=== PATIENT | female | born 1945 | race American Indian/Alaskan Native ===

== ENCOUNTER 2017-01-01 23:17 | Observation (INO) | payer MEDICARE, OTHER ==
[2017-01-01 23:34] VITALS: BMI 26.4
--- NOTE | 2017-01-02 01:43 | ED PDOC ---
Arrival/HPI - General Chief Complaint: Back Pain Time Seen by Provider: 01/02/17 00:18 Historian: Patient - History of Present Illness Narrative History of Present Illness (Text): 01/02/17 01:20 Sailaja Alcaraz is a 71 year old female whose past medical history includes hypertension and GERD, presents to the emergency department complaining of mid- abdominal and back pain after having a mechanical fall two days ago. Patient reports she fell while in her house and uses a walker as support to ambulate. Patient notes she fell forward to her knees and the abdominal pain is worse when trying to straighten her back. Patient denies loss of consciousness, head trauma, chest pain, shortness of breath, dizziness, lightheadedness, or other complaints. Time/Duration: < week (2 days ago) Symptom Onset: Sudden Symptom Course: Unchanged Activities at Onset: Light Modifying Factors (Text): abdominal pain is worse when she straightens her back Context: Walking (with walker as support), Home Past Medical History - Provider Review Nursing Documentation Reviewed: Yes - Infectious Disease Hx of Infectious Diseases: None - Reproductive Menopause: Yes - Cardiac Hx Hypertension: Yes Hx Pacemaker: No - Pulmonary Hx Respiratory Disorders: No - Neurological Hx Neurological Disorder: No Hx Paralysis: No - HEENT Hx HEENT Disorder: No Hx Glaucoma: Yes (left eye) - Renal Hx Renal Disorder: No - Endocrine/Metabolic Hx Endocrine Disorders: No - Hematological/Oncological Hx Blood Transfusions: No Hx Blood Transfusion Reaction: No - Integumentary Hx Dermatological Disorder: No - Musculoskeletal/Rheumatological Hx Musculoskeletal Disorders: Yes Hx Arthritis: Yes - Gastrointestinal Hx Gastrointestinal Disorders: No - Genitourinary/Gynecological Hx Genitourinary Disorders: No - Psychiatric Hx Psychophysiologic Disorder: No Hx Emotional Abuse: No Hx Physical Abuse: No Hx Substance Use: No - Anesthesia Hx Anesthesia Reactions: Yes (DIFFICULTY WAKING UP AFTER EYE SX) Hx Malignant Hyperthermia: No - Suicidal Assessment Feels Threatened In Home Enviroment: No Family/Social History - Physician Review Nursing Documentation Reviewed: Yes Family/Social History: Unknown Family HX Smoking Status: Unknown If Ever Smoked Hx Alcohol Use: No Hx Substance Use: No Allergies/Home Meds Allergies/Adverse Reactions: Allergies No Known Allergies Allergy (Verified 01/01/17 23:31) Home Medications: Home Meds Medication Instructions Recorded Confirmed Enalapril Maleate [Vasotec] 20 mg PO DAILY 05/12/16 01/01/17 Furosemide [Lasix] 40 mg PO DAILY 05/12/16 01/01/17 Metoprolol Succinate [Toprol XL] 100 mg PO DAILY 05/12/16 01/01/17 amLODIPine [Norvasc] 5 mg PO DAILY 05/12/16 01/01/17 Atorvastatin [Lipitor] 20 mg PO HS 01/01/17 01/01/17 Cholecalciferol [Vitamin D] 50,000 iu PO DAILY 01/01/17 01/01/17 Dorzolamide 2%/Timolol 0.5% 1 drop OD DAILY 01/01/17 01/01/17 [Cosopt 2%-0.5% Opht] Iron/Folic Acid/B12/C/Docusate 1 tab PO DAILY 01/01/17 01/01/17 [Ferraplus 90] Pantoprazole [Protonix] 40 mg PO AC 01/01/17 01/01/17 Potassium CL 10 MEQ/50 ML 10 meq PO DAILY 01/01/17 01/01/17 [Potassium CL 10MEQ/50ML STERILE WATER] hydrALAZINE [hydralazine 25 mg PO TID 01/01/17 01/01/17 Hydrochloride] Review of Systems - Review of Systems Constitutional: absent: Fevers Respiratory: absent: SOB Cardiovascular: absent: Chest Pain Gastrointestinal: Abdominal Pain Musculoskeletal: Back Pain Neurological: absent: Headache, Dizziness Physical Exam Vital Signs Reviewed: Yes Vital Signs Temp Pulse Resp Pulse Ox 01/01/17 23:47 99.5 F 82 17 100 Temperature: Afebrile Blood Pressure: Normal Pulse: Regular Respiratory Rate: Normal Appearance: Positive for: Well-Appearing, Non-Toxic, Comfortable Pain Distress: None Mental Status: Positive for: Alert and Oriented X 3 - Systems Exam Head: Present: Atraumatic, Normocephalic Pupils: Present: PERRL Extroacular Muscles: Present: EOMI Conjunctiva: Present: Normal Mouth: Present: Moist Mucous Membranes Neck: Present: Normal Range of Motion Respiratory/Chest: Present: Clear to Auscultation, Good Air Exchange. No: Respiratory Distress, Accessory Muscle Use Cardiovascular: Present: Regular Rate and Rhythm, Normal S1, S2. No: Murmurs Abdomen: Present: Normal Bowel Sounds. No: Tenderness, Distention, Peritoneal Signs, Mass/Organomegaly Back: Present: Other (tenderness on L5 and hip ) Upper Extremity: Present: Normal Inspection. No: Cyanosis, Edema Lower Extremity: Present: Normal Inspection. No: Edema Neurological: Present: GCS=15, CN II-XII Intact, Speech Normal Skin: Present: Warm, Dry, Normal Color. No: Rashes Psychiatric: Present: Alert, Oriented x 3, Normal Insight, Normal Concentration Medical Decision Making ED Course and Treatment: 01/02/17 Impression: 71 year old female with near syncope and back pain after mechanical fall related to the near syncope. Plan: -- EKG -- Chest X-ray -- Hip X-ray -- LS Spine X-ray -- Labs -- Tylenol -- Urinalysis -- Reassess and disposition Progress Notes: 01/02/17 05:45 Patient with labs showing renal insufficiency and anemia, possibly renal in origin. 01/02/17 05:49 EKG: NSR @ 75; no ST/T changes; normal intervals, normal axis. 01/02/17 05:51 For the patient's back pain; x-rays are negative. Urinalysis is still pending as are CT results. With patient c/o back pain going to the abdomen, the consideration of dissection is there, however unable to obtain CTA due to renal function, she will be re-evaluated upon admission and if still complaining of it , may need a MRI in the am when it is open to r/o dissection. Patient is a [facility] patient, which is typically admitted to Dr. Weller; case was discussed with Dr. Boogie, covering Dr. Weller, for admission. 01/02/17 07:05 CT a/p with no acute findings. 01/02/17 07:08 Urine is pending. - Lab Interpretations Lab Results: 01/02/17 01:56 01/02/17 01:56 Lab Results 01/02/17 01:56: Sodium 136, Potassium 3.7, Chloride 100, Carbon Dioxide 21, Anion Gap 19, BUN 74 H, Creatinine 3.8 H, Est GFR ( Amer) 14, Est GFR ( Non-Af Amer) 12, Random Glucose 82, Calcium 9.1, Total Bilirubin 0.4, AST 33, ALT 29, Alkaline Phosphatase 86, Lactate Dehydrogenase 822 H, Total Creatine Kinase 89, Troponin I < 0.01, Total Protein 7.3, Albumin 3.7, Globulin 3.6, Albumin/Globulin Ratio 1.0 L 01/02/17 01:56: WBC 3.8 L, RBC 2.91 L, Hgb 8.0 L, Hct 23.8 L, MCV 81.8, MCH 27.5 , MCHC 33.6, RDW 16.3 H, Plt Count 150, MPV 10.0, Gran % 40.2 L, Lymph % (Auto) 33.7, [place] % (Auto) 6.5 H, Eos % (Auto) 19.3 H, Baso % (Auto) 0.3, Gran # 1.54, Lymph # 1.3, [place] # 0.3, Eos # 0.7, Baso # 0.01 I have reviewed the lab results: Yes - RAD Interpretation Radiology Orders: 01/02/17 00:47 CHEST ONE VIEW [RAD] Stat 01/02/17 00:48 HIP MIN 2V W/ PELVIS LT [RAD] Stat LS SPINE WITH OBL > 18 YRS OLD [RAD] Stat 01/02/17 05:34 ABD & PELVIS W/O PO OR IV CONT [CT] Stat - Medication Orders Current Medication Orders: Sodium Chloride (Sodium Chloride 0.9%) 1,000 mls @ 100 mls/hr IV .Q10H STA Stop: 01/02/17 15:32 Discontinued Medications Acetaminophen (Tylenol 325mg Tab) 650 mg PO STAT STA Stop: 01/02/17 00:47 Last Admin: 01/02/17 02:02 Dose: 650 mg - PA / MATERIAL LOADER / Resident Statement / has reviewed & agrees with the documentation as recorded. / has examined the patient and agrees with the treatment plan. - Scribe Statement The provider has reviewed the documentation as recorded by the Scribe 01/02/2017 Nydia Rowe Provider Scribe Attestation: All medical record entries made by the Scribe were at my direction and personally dictated by me. I have reviewed the chart and agree that the record accurately reflects my personal performance of the history, physical exam, medical decision making, and the department course for this patient. I have also personally directed, reviewed, and agree with the discharge instructions and disposition. Disposition/Present on Arrival - Present on Arrival Any Indicators Present on Arrival: No History of DVT/PE: No History of Uncontrolled Diabetes: No Urinary Catheter: No History of Decub. Ulcer: No History Surgical Site Infection Following: None - Disposition Have Diagnosis and Disposition been Completed?: Yes Diagnosis: Near syncope, Renal insufficiency, Back pain, Anemia Disposition: HOSPITALIZED Disposition Time: 05:40 Patient Plan: Admission Patient Problems: Current Active Problems Problem Status Onset Anemia Acute Back pain Acute Near syncope Acute Renal insufficiency Acute Condition: FAIR
[2017-01-02 02:13] LABS: BASO # 0.01 K/mm3 (0.0-2.0); BASO % 0.3 % (0.0-3.0); EOS # 0.7 (0.0-0.7); EOS % 19.3 % (1.5-5.0); GRAN # 1.54 (1.4-6.5); GRAN % 40.2 % (50.0-68.0); LYMPH # 1.3 (1.2-3.4); LYMPH % 33.7 % (22.0-35.0); MEAN CELL VOLUME 81.8 fl (80.0-105.0); MEAN CORPUSCULAR HEMOGLOBIN 27.5 pg (25.0-35.0); MEAN CORPUSCULAR HGB CONC 33.6 g/dl (31.0-37.0); MONO # 0.3 (0.1-0.6); MONO % 6.5 % (1.0-6.0); RED CELL DISTRIBUTION WIDTH 16.3 % (11.5-14.5); WHITE BLOOD COUNT 3.8 10^3/ul (4.5-11.0)
[2017-01-02 02:18] LABS: HEMATOCRIT 23.8 % (36.0-48.0)
[2017-01-02 02:41] LABS: ALKALINE PHOSPHATASE 86 U/L (38-133); ALT/SGPT 29 U/L (7-56); AST/SGOT 33 U/L (15-39); BILIRUBIN,TOTAL 0.4 mg/dL (0.2-1.3); BLOOD UREA NITROGEN 74 mg/dL (7-21); CALCIUM 9.1 mg/dL (8.4-10.5); CARBON DIOXIDE 21 mmol/L (21-33); CHLORIDE 100 mmol/L (98-107); GFR AFRICAN-AMERICAN 14; GLUCOSE,RANDOM 82 mg/dL (70-110); POTASSIUM 3.7 mmol/L (3.6-5.0); SODIUM 136 mmol/L (132-148); TOTAL PROTEIN 7.3 g/dL (5.8-8.3); TROPONIN I < 0.01 ng/mL
[2017-01-02] MEDS ORDERED: Sodium Chloride 0.9% 1,000 ML IV STA (05:33)
--- NOTE | 2017-01-02 06:57 | CT ---
EXAM: CT Abdomen and Pelvis Without Intravenous Contrast EXAM DATE/TIME: 01/02/2017 5:34 AM CLINICAL HISTORY: 71 years old, female; Pain; Abdominal pain; Generalized; Additional info: Back pain / abd pain TECHNIQUE: Axial computed tomography images of the abdomen and pelvis without intravenous contrast. All CT scans at this facility use one or more dose reduction techniques, viz.: automated exposure control; ma/kV adjustment per patient size (including targeted exams where dose is matched to indication; i.e. head); or iterative reconstruction technique. Coronal and sagittal reformatted images were created and reviewed. COMPARISON: CT - ABD PELVIS IV CONTRAST ONLY 05/12/2016 5:44:19 PM FINDINGS: Lower thorax: Emphysema. ABDOMEN: Liver: Unremarkable. Gallbladder and bile ducts: Unremarkable. No calcified stones. No ductal dilation. Pancreas: Unremarkable. No ductal dilation. Spleen: Unremarkable. No splenomegaly. Adrenals: Unremarkable. No mass. Kidneys and ureters: Tiny 1 x 3 mm calculus midpole right kidney. No hydronephrosis. Hypodense 1.2 cm lesion in right kidney, CT density in the 30s Hounsfield units. Stomach and bowel: Unremarkable. No dilatation of small or large bowel. No mucosal thickening. Appendix: No findings to suggest acute appendicitis. PELVIS: Bladder: Unremarkable. No stones. Reproductive: Unremarkable as visualized. ABDOMEN and PELVIS: Intraperitoneal space: Unremarkable. No free air. No significant fluid collection. Bones/joints: No acute fracture. Soft tissues: Unremarkable. Vasculature: Unremarkable. No abdominal aortic aneurysm. Lymph nodes: No enlarged lymph nodes. IMPRESSION: 1. Tiny right renal calculus and no hydronephrosis. 2. Indeterminate right renal lesion, similar in size to previous examination although less well defined without IV contrast. Complex cyst versus solid lesion. Recommend 3-[address] or MRI follow-up.
--- NOTE | 2017-01-02 07:19 | CP.PCM.HP ---
<Carla Fernando - Last Filed: 01/02/17 13:29> History of Present Illness - History of Present Illness History of Present Illness: CC: Abdominal pain and back pain Patient is a 71 y/o with pmh of htn, GERD, CKD, chronic anemia, chronic gastritis and right eye blindness presenting with epigastric abdominal pain and lateral right lower back pain for 2 days. Patient states she fell 2 days ago while she was walking around the house with her cane and since then she started to experience the back and abdominal pain. The pain is worst when she tries to strengthen herself, better with rest. Since being in the ER the pain has improved. Patient denies hematuria, or dysurea. Patient states when she fell two days ago, she didn't LOC, didn't hit her head, her knees buckled and she fell on her knees. Patient denies h/o falling. Patient denies cp, sob, n/v/d. Admits to occasional chills, but denies fever. Admits to weight loss, denies night sweats. Patient is also c/o pruritus of her skin, states she noticed a rash on her body few days ago, denies any new medications, new soaps, or new food. Don't know if she's allergic to anything. Patient things she might have been bitting by something, but she's not sure what it might be. Tried reaching patient's on the phone, but no reply, left a message. PMH: htn, GERD, CKD, chronic anemia, chronic gastritis and right eye blindness PSH: eye surgery for glaucoma FMH: mom's healthy Social: denies alcohol, tobacco or illicit drug use, lives with , walks with a cane. Allergy: NKDA Home meds: please see emr for full list. Present on Admission - Present on Admission Any Indicators Present on Admission: No History of DVT/PE: No History of Uncontrolled Diabetes: No Urinary Catheter: No Decubitus Ulcer Present: No History Surgical Site Infection Following: None Review of Systems - Constitutional Constitutional: Anorexia, Weight Loss. absent: Headache, Night Sweats, Weakness - EENT Eyes: Blurred Vision, Change in Vision (s/p surgery ) Ears: absent: Dizziness Nose/Mouth/Throat: absent: Sore Throat - Cardiovascular Cardiovascular: absent: Chest Pain, Chest Pain at Rest, Dyspnea, Lightheadedness , Palpitations, Pedal Edema, Syncope - Respiratory Respiratory: absent: Cough, Dyspnea - Gastrointestinal Gastrointestinal: Abdominal Pain. absent: Constipation, Heartburn, Nausea, Vomiting - Genitourinary Genitourinary: absent: Dysuria, Hematuria - Musculoskeletal Musculoskeletal: Back Pain. absent: Muscle Weakness, Stiffness - Integumentary Integumentary: Dry Skin, Pruritus, Rash - Neurological Neurological: absent: Dizziness, Frequent Falls, Syncope, Weakness - Psychiatric Psychiatric: absent: Anxiety, Confusion, Depression - Endocrine Endocrine: absent: Fatigue, Palpitations Past Patient History - Infectious Disease Hx of Infectious Diseases: None - Past Social History Smoking Status: Never Smoked Alcohol: None Drugs: Denies Home Situation {Lives}: With Family - CARDIAC Hx Hypertension: Yes Hx Pacemaker: No - PULMONARY Hx Respiratory Disorders: No - NEUROLOGICAL Hx Neurological Disorder: No Hx Paralysis: No - HEENT Hx HEENT Problems: No Hx Glaucoma: Yes (left eye) - RENAL Hx Chronic Kidney Disease: No - ENDOCRINE/METABOLIC Hx Endocrine Disorders: No - HEMATOLOGICAL/ONCOLOGICAL Hx Blood Transfusions: No Hx Blood Transfusion Reaction: No - INTEGUMENTARY Hx Dermatological Problems: No - MUSCULOSKELETAL/RHEUMATOLOGICAL Hx Musculoskeletal Disorders: Yes Hx Arthritis: Yes - GASTROINTESTINAL Hx Gastrointestinal Disorders: No - GENITOURINARY/GYNECOLOGICAL Hx Genitourinary Disorders: No - PSYCHIATRIC Hx Psychophysiologic Disorder: No Hx Emotional Abuse: No Hx Physical Abuse: No Hx Substance Use: No - SURGICAL HISTORY Hx Surgeries: Yes (BILATERAL CATARACTS WITH IMPLANTS, LASER EYE SX, EGD. COLONOSCOPY) - ANESTHESIA Hx Anesthesia Reactions: Yes (DIFFICULTY WAKING UP AFTER EYE SX) Hx Malignant Hyperthermia: No Meds Allergies/Adverse Reactions: Allergies Allergy/AdvReac Type Severity Reaction Status Date / Time No Known Allergies Allergy Verified 01/01/17 23:31 Physical Exam - Constitutional Appears: No Acute Distress, Cachectic - Head Exam Head Exam: ATRAUMATIC, NORMAL INSPECTION, NORMOCEPHALIC - Eye Exam Eye Exam: EOMI, Normal appearance, PERRL. absent: Scleral icterus Pupil Exam: NORMAL ACCOMODATION - ENT Exam ENT Exam: Mucous Membranes Dry - Neck Exam Neck exam: Positive for: Normal Inspection - Respiratory Exam Respiratory Exam: Clear to Auscultation Bilateral, NORMAL BREATHING PATTERN. absent: Rales, Rhonchi, Wheezes, Respiratory Distress, Stridor - Cardiovascular Exam Cardiovascular Exam: REGULAR RHYTHM, RRR, +S1, +S2. absent: Systolic Murmur - GI/Abdominal Exam GI & Abdominal Exam: Normal Bowel Sounds, Soft. absent: Distended, Firm, Guarding, Rigid, Tenderness - Extremities Exam Extremities exam: Positive for: normal inspection. Negative for: pedal edema - Back Exam Back exam: NORMAL INSPECTION, tenderness (right lateral). absent: muscle spasm , paraspinal tenderness - Neurological Exam Neurological exam: Alert, Oriented x3 - Psychiatric Exam Psychiatric exam: Normal Affect, Normal Mood - Skin Skin Exam: Rash (throughout the body, except private area, and abdominal region. ), Warm Results - Vital Signs Recent Vital Signs: Last Vital Signs Temp 99.5 F 01/01/17 23:47 Pulse 82 01/01/17 23:47 Resp 17 01/01/17 23:47 BP Pulse Ox 100 01/01/17 23:47 - Labs Result Diagrams: 01/02/17 01:56 01/02/17 01:56 Assessment & Plan - Assessment and Plan (Free Text) Assessment: 1) Epigastric abdominal pain likely gerd versus constipation, less likely pancreatitis, cholangitis, intestinal ischemia 2) Lower back pain-likely 2nd to degenerative changes 3) ALEJANDRA on CKD- likely AIN versus multiple myeloma 4) Mechanical fall 2nd to gait instability 5) Chronic anemia, r/o iron deficiency versus hemolysis ( elevated LDH) 6) htn 7) OA 8) Small renal calculi 9) Generalized rash 10) Indeterminate right renal lesion 11) Complex right renal cyst vs solid. 12) Glaucoma Plan: CT abdomen and pelvis with no signs of cholangitis or pancreatitis. Will start protonix. Colace for constipation. Patient has generalized rash, eosinophilia in the setting of ALEJANDRA suspicious for AIN. Will start patient on prednisone 40 mg daily. Will obtain urine eosinophils, random creatinine, sodium and quantitative protein. Patient also has extensive degenerative changes, and anemia, will obtain spep, upep for multiple myeloma. Will obtain iron panel, b12 and folate. On Norvasc for htn. Patient is also on Lipitor and protonix. On cosopt for glaucoma. NS@100 cc/hr. PT for gait instability. Patient seen, examined, and case discussed with Dr Boogie. - Date & Time Date: 01/02/17 Time: 07:50 <Chuyita,Nathan S - Last Filed: 01/02/17 21:41> Results - Vital Signs Recent Vital Signs: Last Vital Signs Temp 98.2 F 01/02/17 17:27 Pulse 71 01/02/17 17:27 Resp 19 01/02/17 17:27 BP 107/57 L 01/02/17 17:27 Pulse Ox 100 01/02/17 10:20 - Labs Result Diagrams: 01/02/17 01:56 01/02/17 01:56 Labs: Laboratory Results - last 24 hr 01/02/17 07:00 Urine Color Yellow Urine Appearance Clear Urine pH 6.0 Ur Specific [place] 1.015 Urine Protein Trace H Urine Glucose (UA) Negative Urine Ketones Negative Urine Blood Negative Urine Nitrate Negative Urine Bilirubin Negative Urine Urobilinogen 0.2 Ur Leukocyte Esterase Negative Urine RBC Negative Urine WBC Negative Urine Bacteria Trace Assessment & Plan - Assessment and Plan (Free Text) Plan: Pt seen and examined. Resident note reviewed and I agree with the note. Pt with anemia, back pain, rash, and eosinophilia. Will start the pt on Predinisone due to probable AIN. R/O myelmoa. Pt with HIV screen that is positive. Will need PCR. Pt is frail. Will add IVF to see if Cr improves due to Pre-Renal cause. Check AM labs.
--- NOTE | 2017-01-02 07:22 | RAD ---
PROCEDURE: Radiographs of the Lumbar Spine. HISTORY: pain COMPARISON: CT sagittal reconstructions 01/02/2017 FINDINGS: BONES: Minimal degenerative like anterior wedging of T12 and T11 are noted. Not significantly changed. Prominent anterior spondylosis -bridging in appearance is suggested. No compressed lumbar vertebral bodies are noted. The L5 posterior mild subluxation relative to S1 is unchanged. Posterior elements appear intact. Mild alignment here consistent with ligamentous laxity -L4-5 and L5-S1 facet hypertrophic arthrosis of the suggested. L5-S1 diffuse superior and inferior spondylosis DISC SPACES: L5-S1 disc space narrowing OTHER FINDINGS: Atherosclerotic vascular calcifications descending abdominal aorta -no aneurysmal dilatation appreciated. Marked stool retention bilateral hemipelvic phleboliths. Distended bladder. Bilateral hip arthrosis. Unremarkable SI joints pubic symphysis IMPRESSION: Lumbar senescent changes -L5-S1 level. Bilateral facet arthrosis L4-5 and L5-S1 with mild retrolisthesis of L5 relative to S1. L5-S1 degenerative disc space narrowing. No lumbar fracture Inferior thoracic degenerative like wedging
[2017-01-02 07:27] LABS: URINE BILIRUBIN NEGATIVE (NEGATIVE); URINE BLOOD NEGATIVE (NEGATIVE); URINE GLUCOSE (UA) NEGATIVE (NEGATIVE); URINE KETONE NEGATIVE (NEGATIVE); URINE LEUKOCYTE ESTERASE NEGATIVE Leu/uL (NEGATIVE); URINE PROTEIN TRACE mg/dL (<30 mg/dL); URINE UROBILINOGEN 0.2 E.U./dL (<1 E.U./dL)
--- NOTE | 2017-01-02 07:27 | RAD ---
PROCEDURE: HISTORY: pain COMPARISON: None TECHNIQUE: AP view of the pelvis and applicable frog leg views obtained. FINDINGS: Bilateral superolateral hip joint space narrowing. Bilateral superior acetabular spurring left greater than right. Well corticated ossification (s) border the superior left acetabulum -os acetabula here versus loose bodies are some considerations. Bilateral ossifications calcifications -greater trochanter bordering -bilateral calcific bursitis versus calcific tendinopathy -gluteal tendons here. Bilateral L4-5 and L5-S1 hypertrophic facet arthrosis. Possible minimal iliac sided sclerosis inferior right SI joint unremarkable sacroiliac joints. Distended bladder. Bilateral hemipelvic phleboliths The left hemipelvis appears superiorly tilted. No fracture or gross dislocation suggested. IMPRESSION: No fracture or dislocation Bilateral hip osteoarthrosis left greater than right. Left os acetabula (Versus loose bodies -versus old osseous avulsions)
[2017-01-02 07:28] LABS: URINE APPEARANCE CLEAR (CLEAR); URINE COLOR YELLOW (YELLOW)
--- NOTE | 2017-01-02 07:30 | RAD ---
PROCEDURE: CHEST RADIOGRAPH, 1 VIEW HISTORY: fall COMPARISON: None available. FINDINGS: LUNGS: Clear. PLEURA: No pneumothorax or pleural fluid seen. CARDIOVASCULAR: Normal. OSSEOUS STRUCTURES: Bordering the right tuberosity calcific tendinopathy is is low subdeltoid calcific bursitis versus atypical spur. . VISUALIZED UPPER ABDOMEN: Normal. OTHER FINDINGS: None. IMPRESSION: No active cardiopulmonary pathology appreciated
[2017-01-02 08:10] LABS: URINE BACTERIA TRACE (NEG); URINE RBC NEGATIVE /hpf (0-2); URINE WBC NEGATIVE /hpf (0-6)
[2017-01-02] MEDS ORDERED: DiphenhydrAMINE 50 mg/ml Inj IVP STA (08:18)
[2017-01-02 08:22] LABS: IRON 22 ug/dL (45-180)
[2017-01-02] MEDS: Pantoprazole 40 mg EC Tab PO SCH ×3 (08:35→17:49)
[2017-01-02] MEDS: Metoprolol Succinate 100 mg XL Tab PO SCH (10:26)
[2017-01-02] MEDS: Dorzolamide 2%/Timolol 0.5% 100 DROP/10 ML BOTTLE OD SCH (13:27)
[2017-01-02] MEDS ORDERED: Pneumococcal 23-Valent Vaccine IM ONE (15:11)
--- NOTE | 2017-01-02 19:18 | CARD ---
APPROVED REPORT EKG Measurement Heart [id number] <Conclusion> Normal sinus rhythm Normal ECG
[2017-01-03] MEDS: Pantoprazole 40 mg EC Tab PO SCH (05:25)
--- NOTE | 2017-01-03 07:25 | CP.PCM.PN ---
<Jenna Fernandola - Last Filed: 01/03/17 10:23> Subjective - Date & Time of Evaluation Date of Evaluation: 01/03/17 Time of Evaluation: 07:30 - Subjective Subjective: Medicine progress note for Dr Boogie. Patient reports the symptoms are the same. Still very frail, still experiencing lower back pain and the epigastric abdominal pain. Denies nausea, vomiting or diarrhea. Denies cp or sob. Denies fever or chills. No cough. Objective - Vital Signs/Intake and Output Vital Signs (last 24 hours): Temp Pulse Resp BP Pulse Ox 98.2 F 81 19 133/67 99 01/03/17 06:00 01/03/17 06:00 01/03/17 06:00 01/03/17 06:00 01/03/17 06:00 Intake and Output: 01/03/17 01/03/17 06:59 18:59 Intake Total 120 Output Total 3 Balance 117 - Medications Medications: Current Medications Amlodipine Besylate (Norvasc) 5 mg PO DAILY [facility] Last Admin: 01/02/17 10:26 Dose: Not Given Atorvastatin Calcium (Lipitor) 20 mg PO HS [facility] Last Admin: 01/02/17 21:46 Dose: 20 mg Docusate Sodium (Colace) 100 mg PO BID [facility] Last Admin: 01/02/17 17:44 Dose: Not Given Dorzolamide/Timolol (Cosopt 2%-0.5% Opht) 1 drop OD DAILY [facility] Last Admin: 01/02/17 13:27 Dose: 1 drop Heparin Sodium (Porcine) (Heparin) 5,000 units SC Q12 [facility] PRN Reason: Protocol Last Admin: 01/02/17 21:46 Dose: 5,000 units Metoprolol Succinate (Toprol Xl) 100 mg PO DAILY [facility] Last Admin: 01/02/17 10:26 Dose: Not Given Pantoprazole Sodium (Protonix Ec Tab) 40 mg PO 0600 [facility] Last Admin: 01/03/17 05:25 Dose: 40 mg Prednisone (Prednisone Tab) 40 mg PO DAILY [facility] Last Admin: 01/02/17 10:27 Dose: 40 mg - Constitutional Appears: No Acute Distress, Cachectic, Chronically Ill - Head Exam Head Exam: ATRAUMATIC, NORMAL INSPECTION, NORMOCEPHALIC - Eye Exam Eye Exam: EOMI, PERRL. absent: Scleral icterus Additional comments: Right eye blindness. - ENT Exam ENT Exam: Mucous Membranes Moist - Neck Exam Neck Exam: Normal Inspection - Respiratory Exam Respiratory Exam: Clear to Ausculation Bilateral, NORMAL BREATHING PATTERN. absent: Rales, Rhonchi, Wheezes, Respiratory Distress, Stridor - Cardiovascular Exam Cardiovascular Exam: REGULAR RHYTHM, RRR, +S1, +S2. absent: Murmur - GI/Abdominal Exam GI & Abdominal Exam: Soft, Tenderness (epigastric region. ), Normal Bowel Sounds. absent: Distended, Firm, Guarding, Rigid, Rebound - Extremities Exam Extremities Exam: absent: Pedal Edema - Back Exam Back Exam: NORMAL INSPECTION - Neurological Exam Neurological Exam: Alert, Awake, Oriented x3 - Psychiatric Exam Psychiatric exam: Depressed - Skin Skin Exam: Rash (with thick skin pad througout her body, except the abdomen, no signs of erythema, no drainage, just dry, and crusted. and pruritric. ) Assessment and Plan - Assessment and Plan (Free Text) Assessment: 1) ALEJANDRA on CKD 2) Anemia of chronic disease 3) Reactive HIV test 4) Leukopenia ANC of 2128 5) Lower back pain-likely 2nd to degenerative changes 6) Mechanical fall 2nd to gait instability 7) htn 8) OA 9) Small renal calculi 10) Generalized rash 11) Indeterminate right renal lesion 12) Complex right renal cyst vs solid. 13) Glaucoma Plan: Patient had reactive HIV test, needs confirmatory test. ID following. H/H improved slightly, b12 and folate pending. will continue to monitor and transfuse if hgb is bellow 7. Creatinine also improved with IV hydration, likely pre-renal component. Urine studies pending. Eosinophelia improved. UPEP and SPEP pending. BCx and UCX are also pending. AIN still a possibility, will continue prednisone 40 mg daily for now. Patient with labile hypotension, thus BP meds are on hold. Will continue lipitor for hld. On cosopt for glaucoma. NS@100 cc/hr. PT for gait instability. On protonix for gi prophylaxis and heparin sc for DVT prophylaxis. Patient seen, examined, and case discussed with Dr Boogie. <Nathan Boogie - Last Filed: 01/03/17 21:34> Objective - Vital Signs/Intake and Output Vital Signs (last 24 hours): Temp Pulse Resp BP Pulse Ox 99 F 82 19 132/80 99 01/03/17 16:50 01/03/17 16:50 01/03/17 16:50 01/03/17 16:50 01/03/17 06:00 - Medications Medications: Current Medications Amlodipine Besylate (Norvasc) 5 mg PO DAILY [facility] Last Admin: 01/03/17 11:58 Dose: 5 mg Atorvastatin Calcium (Lipitor) 20 mg PO HS [facility] Last Admin: 01/02/17 21:46 Dose: 20 mg Docusate Sodium (Colace) 100 mg PO BID [facility] Last Admin: 01/03/17 18:08 Dose: Not Given Dorzolamide/Timolol (Cosopt 2%-0.5% Opht) 1 drop OD DAILY [facility] Last Admin: 01/03/17 12:30 Dose: 1 drop Heparin Sodium (Porcine) (Heparin) 5,000 units SC Q12 [facility] PRN Reason: Protocol Last Admin: 01/03/17 11:58 Dose: 5,000 units Metoprolol Succinate (Toprol Xl) 100 mg PO DAILY [facility] Last Admin: 01/03/17 11:58 Dose: 100 mg Pantoprazole Sodium (Protonix Ec Tab) 40 mg PO 0600 [facility] Last Admin: 01/03/17 05:25 Dose: 40 mg Prednisone (Prednisone Tab) 40 mg PO DAILY [facility] Last Admin: 01/03/17 11:58 Dose: 40 mg - Labs Labs: 01/03/17 06:30 01/03/17 06:30 Assessment and Plan - Assessment and Plan (Free Text) Plan: Pt seen and examined. Resident note reviewed and I agree with it. Possible HIV. Will wait to see the results of HIV PCR. Cr is improving. On Prednisone due to probable AIN. Urine studies pending.
[2017-01-03 07:35] LABS: BASO # 0.01 K/mm3 (0.0-2.0); BASO % 0.3 % (0.0-3.0); EOS # 0.1 (0.0-0.7); GRAN # 2.1 (1.4-6.5); GRAN % 62.6 % (50.0-68.0); HEMATOCRIT 27.1 % (36.0-48.0); LYMPH # 0.9 (1.2-3.4); LYMPH % 27.8 % (22.0-35.0); MEAN CELL VOLUME 81.6 fl (80.0-105.0); MEAN CORPUSCULAR HEMOGLOBIN 26.8 pg (25.0-35.0); MEAN CORPUSCULAR HGB CONC 32.8 g/dl (31.0-37.0); MEAN PLATELET VOLUME 10.8 fl (7.0-11.0); MONO # 0.2 (0.1-0.6); MONO % 6.3 % (1.0-6.0); RED CELL DISTRIBUTION WIDTH 16.6 % (11.5-14.5); WHITE BLOOD COUNT 3.4 10^3/ul (4.5-11.0)
[2017-01-03 07:50] LABS: ALB/GLOB RATIO 0.9 (1.1-1.8); ALKALINE PHOSPHATASE 88 U/L (38-133); ALT/SGPT 28 U/L (7-56); AST/SGOT 35 U/L (15-39); BILIRUBIN,TOTAL 0.3 mg/dL (0.2-1.3); BLOOD UREA NITROGEN 65 mg/dL (7-21); CALCIUM 8.8 mg/dL (8.4-10.5); CARBON DIOXIDE 22 mmol/L (21-33); CHLORIDE 107 mmol/L (98-107); GFR AFRICAN-AMERICAN 22; GLUCOSE,RANDOM 104 mg/dL (70-110); POTASSIUM 3.7 mmol/L (3.6-5.0); SODIUM 140 mmol/L (132-148); TOTAL PROTEIN 7.2 g/dL (5.8-8.3)
[2017-01-03] MEDS: Metoprolol Succinate 100 mg XL Tab PO SCH (11:58)
[2017-01-03] MEDS: Dorzolamide 2%/Timolol 0.5% 100 DROP/10 ML BOTTLE OD SCH (12:30)
--- NOTE | 2017-01-03 12:39 | CP.PCM.CON ---
History of Present Illness - History of Present Illness History of Present Illness: 71 year old female with PMH of chronic anemia, chronic gastritis, GERD, chronic renal failure, right eye blindness, HTN was initially admitted in [facility] because of abdominal pain and is being worked up for this. She is also complaining of pruritus and rash on her torso and arms since a few days and has been scratching. She denies fever or chills, no diarrhea, no nausea or vomiting currently, no shortness of breath, no cough or colds, no sore throat, no headache or dizziness. Rapid HIV was done which is reactive. Infectious diseases consult is requested to further evaluate and manage. Review of Systems - Review of Systems All systems: reviewed and no additional remarkable complaints except (as per HPI ) Past Patient History - Infectious Disease Hx of Infectious Diseases: None - Past Social History Smoking Status: Never Smoked - CARDIAC Hx Hypertension: Yes Hx Pacemaker: No Hx Peripheral Edema: Yes (ble +1) - PULMONARY Hx Respiratory Disorders: No - NEUROLOGICAL Hx Neurological Disorder: No - HEENT Hx HEENT Problems: No Hx Blind: Yes (r eye blind, left eye impaired vision) Hx Cataracts: Yes (b/l sx with implants) Hx Glaucoma: Yes (b/l sx) Other/Comment: laser eye sx, feels like there is something "stuck in my right ear" - RENAL Hx Chronic Kidney Disease: Yes - ENDOCRINE/METABOLIC Hx Endocrine Disorders: No - HEMATOLOGICAL/ONCOLOGICAL Hx Anemia: Yes (chronic) - INTEGUMENTARY Hx Dermatological Problems: Yes Other/Comment: body rash brown bumps over entire body c/o itchy, generalized dry skin started few days ago - MUSCULOSKELETAL/RHEUMATOLOGICAL Hx Musculoskeletal Disorders: Yes Hx Arthritis: Yes (right hip and leg) Hx Falls: Yes (2 days ago) Hx Unsteady Gait: Yes (cane/walker) Other/Comment: right hip/leg pain x 1 month - GASTROINTESTINAL Hx Gastrointestinal Disorders: Yes (weight loss as per pt) Hx Gastroesophageal Reflux: Yes Other/Comment: chronic gastritis,diverticulsis, hemorrhoids, hiatal hernia,pt c/ o that after eye sx in 04/2016 she used to weigh 200 lbs now weighs 149 51 lb weight loss, c/o poor appetite after eye sx - GENITOURINARY/GYNECOLOGICAL Hx Genitourinary Disorders: No - PSYCHIATRIC Hx Psychophysiologic Disorder: No Hx Emotional Abuse: No Hx Physical Abuse: No Hx Substance Use: No - SURGICAL HISTORY Hx Surgeries: Yes (BILATERAL CATARACTS WITH IMPLANTS, LASER EYE SX, EGD. COLONOSCOPY) - ANESTHESIA Hx Anesthesia Reactions: Yes (DIFFICULTY WAKING UP AFTER EYE SX) Hx Malignant Hyperthermia: No Meds Allergies/Adverse Reactions: Allergies Allergy/AdvReac Type Severity Reaction Status Date / Time No Known Allergies Allergy Verified 01/01/17 23:31 - Medications Medications: Current Medications Amlodipine Besylate (Norvasc) 5 mg PO DAILY [facility] Last Admin: 01/02/17 10:26 Dose: Not Given Atorvastatin Calcium (Lipitor) 20 mg PO [facility] Docusate Sodium (Colace) 100 mg PO BID [facility] Last Admin: 01/02/17 17:44 Dose: Not Given Dorzolamide/Timolol (Cosopt 2%-0.5% Opht) 1 drop OD DAILY [facility] Last Admin: 01/02/17 13:27 Dose: 1 drop Heparin Sodium (Porcine) (Heparin) 5,000 units SC Q12 [facility] PRN Reason: Protocol Metoprolol Succinate (Toprol Xl) 100 mg PO DAILY [facility] Last Admin: 01/02/17 10:26 Dose: Not Given Pantoprazole Sodium (Protonix Ec Tab) 40 mg PO 0600 [facility] Prednisone (Prednisone Tab) 40 mg PO DAILY [facility] Last Admin: 01/02/17 10:27 Dose: 40 mg Physical Exam - Constitutional Appears: Non-toxic, No Acute Distress - Head Exam Head Exam: NORMAL INSPECTION - ENT Exam ENT Exam: Mucous Membranes Moist - Neck Exam Neck exam: Negative for: Lymphadenopathy, Meningismus - Respiratory Exam Respiratory Exam: Decreased Breath Sounds - Cardiovascular Exam Cardiovascular Exam: +S1, +S2 - GI/Abdominal Exam GI & Abdominal Exam: Soft. absent: Tenderness - Skin Additional comments: papular lesions on the arms, anterior trunk and legs without note of vesicles Results - Vital Signs Recent Vital Signs: Last Vital Signs Temp 98.2 F 01/02/17 17:27 Pulse 71 01/02/17 17:27 Resp 19 01/02/17 17:27 BP 107/57 L 01/02/17 17:27 Pulse Ox 100 01/02/17 10:20 - Labs Result Diagrams: 01/03/17 06:30 01/03/17 06:30 Labs: Laboratory Results - last 24 hr 01/02/17 07:00 Urine Color Yellow Urine Appearance Clear Urine pH 6.0 Ur Specific [place] 1.015 Urine Protein Trace H Urine Glucose (UA) Negative Urine Ketones Negative Urine Blood Negative Urine Nitrate Negative Urine Bilirubin Negative Urine Urobilinogen 0.2 Ur Leukocyte Esterase Negative Urine RBC Negative Urine WBC Negative Urine Bacteria Trace Assessment & Plan - Assessment and Plan (Free Text) Plan: Assessment Pruritic papular rash with eosinophilia R/O due to HIV, R/O hypereosinophilic syndrome, R/O parasitic infection, R/O hypersensitivity positive rapid HIV test, to be confirmed chronic anemia chronic gastritis GERD chronic renal failure right eye blindness HTN Plan Follow up 4th generation HIV test, HIV RNA PCR and CD4 count will check stool for ova and parasites patient has been started on PO Prednisone which has changed the differential count on the CBC will monitor clinically
[2017-01-03 12:43] LABS: FOLATE > 20.0 ng/mL
[2017-01-04 01:27] LABS: TOTAL PROTEIN, SERUM 6.5 g/dL (6.1-8.1)
[2017-01-04] MEDS ORDERED: DiphenhydrAMINE 12.5 mg/5 ml LIQ UD (5 ml) PO PRN ×2 (02:40→14:35)
--- NOTE | 2017-01-04 03:02 | CP.PCM.PN ---
Subjective - Date & Time of Evaluation Date of Evaluation: 01/04/17 Time of Evaluation: 03:00 - Subjective Subjective: Patient was seen at bedside because she complained of itching in the back. I was asked to co singn order for benadryl. She complained of rash in back. Has no other complaints. Medical record was reviewed. This 71 year old woman was admitted epigastric abdominal pain, lateral right lower back pain. Has PMH of GERD ,CKD, chronic anemia, Hypertension, chronic gastritis, right eye blindness, eye surgery for glaucoma. Objective - Vital Signs/Intake and Output Vital Signs (last 24 hours): Temp Pulse Resp BP Pulse Ox 98.7 F 64 20 114/57 L 100 01/04/17 00:01 01/04/17 00:01 01/04/17 00:01 01/04/17 00:01 01/04/17 00:01 Intake and Output: 01/03/17 01/04/17 18:59 06:59 Intake Total 180 Output Total 100 Balance 80 - Medications Medications: Current Medications Amlodipine Besylate (Norvasc) 5 mg PO DAILY [facility] Last Admin: 01/03/17 11:58 Dose: 5 mg Atorvastatin Calcium (Lipitor) 20 mg PO HS [facility] Last Admin: 01/03/17 21:34 Dose: 20 mg Diphenhydramine HCl (Benadryl) 25 mg PO HS PRN PRN Reason: Allergy symptoms Docusate Sodium (Colace) 100 mg PO BID [facility] Last Admin: 01/03/17 18:08 Dose: Not Given Dorzolamide/Timolol (Cosopt 2%-0.5% Opht) 1 drop OD DAILY [facility] Last Admin: 01/03/17 12:30 Dose: 1 drop Heparin Sodium (Porcine) (Heparin) 5,000 units SC Q12 [facility] PRN Reason: Protocol Last Admin: 01/03/17 21:32 Dose: 5,000 units Metoprolol Succinate (Toprol Xl) 100 mg PO DAILY [facility] Last Admin: 01/03/17 11:58 Dose: 100 mg Pantoprazole Sodium (Protonix Ec Tab) 40 mg PO 0600 [facility] Last Admin: 01/03/17 05:25 Dose: 40 mg Prednisone (Prednisone Tab) 40 mg PO DAILY [facility] Last Admin: 01/03/17 11:58 Dose: 40 mg - Labs Labs: 01/03/17 06:30 01/03/17 06:30 - Constitutional Appears: Well, No Acute Distress - Head Exam Head Exam: ATRAUMATIC, NORMAL INSPECTION, NORMOCEPHALIC - Eye Exam Additional comments: Right eye blindness - ENT Exam ENT Exam: Normal External Ear Exam - Neck Exam Neck Exam: Normal Inspection - Respiratory Exam Respiratory Exam: NORMAL BREATHING PATTERN - Cardiovascular Exam Cardiovascular Exam: absent: JVD - GI/Abdominal Exam GI & Abdominal Exam: absent: Distended - Rectal Exam Rectal Exam: Deferred - Exam Additional comments: Deferred. - Extremities Exam Extremities Exam: Normal Inspection - Back Exam Back Exam: NORMAL INSPECTION - Neurological Exam Neurological Exam: Alert, Awake - Psychiatric Exam Psychiatric exam: Normal Affect - Skin Skin Exam: Normal Color Assessment and Plan - Assessment and Plan (Free Text) Assessment: Skin rash. HTN. GERD. CKD. Anemia. Ch.Gastritis. Right eye blindness. Hx surgery for glaucoma. Plan: Observation. Continue present management.
[2017-01-04 04:19] LABS: CREATININE, RANDOM URINE 88 mg/dL (20-320)
[2017-01-04] MEDS: Pantoprazole 40 mg EC Tab PO SCH (05:56)
[2017-01-04 07:01] LABS: BASO # 0.01 K/mm3 (0.0-2.0); BASO % 0.2 % (0.0-3.0); EOS % 0.2 % (1.5-5.0); GRAN # 3.44 (1.4-6.5); GRAN % 73.2 % (50.0-68.0); HEMATOCRIT 25.7 % (36.0-48.0); LYMPH % 20.2 % (22.0-35.0); MEAN CELL VOLUME 81.3 fl (80.0-105.0); MEAN CORPUSCULAR HEMOGLOBIN 26.9 pg (25.0-35.0); MEAN CORPUSCULAR HGB CONC 33.1 g/dl (31.0-37.0); MEAN PLATELET VOLUME 10.2 fl (7.0-11.0); MONO # 0.3 (0.1-0.6); MONO % 6.2 % (1.0-6.0); RED CELL DISTRIBUTION WIDTH 16.7 % (11.5-14.5); WHITE BLOOD COUNT 4.7 10^3/ul (4.5-11.0)
[2017-01-04 07:17] LABS: ALB/GLOB RATIO 0.9 (1.1-1.8); BILIRUBIN,TOTAL 0.4 mg/dL (0.2-1.3); CALCIUM 9.1 mg/dL (8.4-10.5); POTASSIUM 4.2 mmol/L (3.6-5.0)
[2017-01-04] MEDS ORDERED: Permethrin 5% Cream(60 gm) TOP ONE (09:56)
--- NOTE | 2017-01-04 10:00 | CP.PCM.PN ---
Subjective - Date & Time of Evaluation Date of Evaluation: 01/04/17 Time of Evaluation: 09:35 - Subjective Subjective: Patient continues to have itching especially in the hands and arms, but also had itching on the upper anterior torso and posterior torso. States her whom she lives with also has itching. No fevers overnight. Objective - Vital Signs/Intake and Output Vital Signs (last 24 hours): Temp Pulse Resp BP Pulse Ox 98.7 F 64 20 114/57 L 100 01/04/17 00:01 01/04/17 00:01 01/04/17 00:01 01/04/17 00:01 01/04/17 00:01 Intake and Output: 01/03/17 01/04/17 18:59 06:59 Intake Total 330 Output Total 600 Balance -270 - Medications Medications: Current Medications Amlodipine Besylate (Norvasc) 5 mg PO DAILY [facility] Last Admin: 01/03/17 11:58 Dose: 5 mg Atorvastatin Calcium (Lipitor) 20 mg PO HS [facility] Last Admin: 01/03/17 21:34 Dose: 20 mg Diphenhydramine HCl (Benadryl) 25 mg PO HS PRN PRN Reason: Allergy symptoms Last Admin: 01/04/17 04:26 Dose: 25 mg Docusate Sodium (Colace) 100 mg PO BID [facility] Last Admin: 01/03/17 18:08 Dose: Not Given Dorzolamide/Timolol (Cosopt 2%-0.5% Opht) 1 drop OD DAILY [facility] Last Admin: 01/03/17 12:30 Dose: 1 drop Heparin Sodium (Porcine) (Heparin) 5,000 units SC Q12 [facility] PRN Reason: Protocol Last Admin: 01/03/17 21:32 Dose: 5,000 units Metoprolol Succinate (Toprol Xl) 100 mg PO DAILY [facility] Last Admin: 01/03/17 11:58 Dose: 100 mg Pantoprazole Sodium (Protonix Ec Tab) 40 mg PO 0600 [facility] Last Admin: 01/04/17 05:56 Dose: 40 mg Prednisone (Prednisone Tab) 40 mg PO DAILY [facility] Last Admin: 01/03/17 11:58 Dose: 40 mg - Labs Labs: 01/03/17 06:30 01/03/17 06:30 - Constitutional Appears: Non-toxic, No Acute Distress - Head Exam Head Exam: NORMAL INSPECTION - ENT Exam ENT Exam: Mucous Membranes Moist - Neck Exam Neck Exam: absent: Lymphadenopathy, Meningismus - Respiratory Exam Respiratory Exam: Decreased Breath Sounds - Cardiovascular Exam Cardiovascular Exam: +S1, +S2 - GI/Abdominal Exam GI & Abdominal Exam: Soft. absent: Tenderness - Skin Additional comments: darkened papules with lichenification noted on both hands, upper arms and posterior torso; also note of darkened papules on the posterior torso Assessment and Plan - Assessment and Plan (Free Text) Plan: Assessment Pruritic papular rash with eosinophilia R/O due to HIV, R/O hypereosinophilic syndrome, R/O parasitic infection, R/O hypersensitivity positive rapid HIV test, to be confirmed chronic anemia chronic gastritis GERD chronic renal failure right eye blindness HTN Plan Follow up 4th generation HIV test, HIV RNA PCR and CD4 count will check stool for ova and parasites patient has been started on PO Prednisone which has changed the differential count on the CBC although doubtful that this is scabies, will give Permethrin cream will continue to monitor clinically
[2017-01-04] MEDS: Metoprolol Succinate 100 mg XL Tab PO SCH (11:18)
[2017-01-04] MEDS: Dorzolamide 2%/Timolol 0.5% 100 DROP/10 ML BOTTLE OD SCH (11:20)
--- NOTE | 2017-01-04 14:22 | CP.PCM.PN ---
<AbdullahiCarla - Last Filed: 01/04/17 15:29> Subjective - Date & Time of Evaluation Date of Evaluation: 01/04/17 Time of Evaluation: 08:25 - Subjective Subjective: Progress note for Dr Chuyita grady. Patient reports the abdominal pain and back pain has resolved. Reported she's still experiencing itchiness all over her body ( has a rash all over her body except her abdomen). Benadryl helps temporarily. Patient is also c/o discomfort in the ears bilaterally. Denies hearing loss. Objective - Vital Signs/Intake and Output Vital Signs (last 24 hours): Temp Pulse Resp BP Pulse Ox 98.8 F 70 20 112/60 99 01/04/17 08:56 01/04/17 11:18 01/04/17 08:56 01/04/17 11:18 01/04/17 08:56 Intake and Output: 01/04/17 01/04/17 06:59 18:59 Intake Total 330 Output Total 600 Balance -270 - Medications Medications: Current Medications Amlodipine Besylate (Norvasc) 5 mg PO DAILY [facility] Last Admin: 01/04/17 11:18 Dose: 5 mg Atorvastatin Calcium (Lipitor) 20 mg PO HS [facility] Last Admin: 01/03/17 21:34 Dose: 20 mg Diphenhydramine HCl (Benadryl) 25 mg PO HS PRN PRN Reason: Allergy symptoms Last Admin: 01/04/17 04:26 Dose: 25 mg Docusate Sodium (Colace) 100 mg PO BID [facility] Last Admin: 01/04/17 11:18 Dose: 100 mg Dorzolamide/Timolol (Cosopt 2%-0.5% Opht) 1 drop OD DAILY [facility] Last Admin: 01/04/17 11:20 Dose: 1 drop Heparin Sodium (Porcine) (Heparin) 5,000 units SC Q12 [facility] PRN Reason: Protocol Last Admin: 01/04/17 11:20 Dose: 5,000 units Metoprolol Succinate (Toprol Xl) 100 mg PO DAILY [facility] Last Admin: 01/04/17 11:18 Dose: 100 mg Pantoprazole Sodium (Protonix Ec Tab) 40 mg PO 0600 [facility] Last Admin: 01/04/17 05:56 Dose: 40 mg Prednisone (Prednisone Tab) 40 mg PO DAILY [facility] Stop: 01/05/17 07:00 Last Admin: 01/04/17 11:17 Dose: 40 mg - Labs Labs: 01/04/17 06:30 01/04/17 06:30 - Constitutional Appears: No Acute Distress, Cachectic, Chronically Ill - Head Exam Head Exam: ATRAUMATIC, NORMAL INSPECTION, NORMOCEPHALIC - Eye Exam Eye Exam: EOMI, PERRL. absent: Scleral icterus Additional comments: Right eye blindness. - ENT Exam ENT Exam: Mucous Membranes Moist Additional comments: Normal tympanic membrane in the left, with surrounding ear cerumen. bulging tympanic membrane in the right ear, with fluid in the back of the membrane. - Neck Exam Neck Exam: Full ROM, Lymphadenopathy, Normal Inspection - Respiratory Exam Respiratory Exam: Clear to Ausculation Bilateral, NORMAL BREATHING PATTERN. absent: Rales, Rhonchi, Wheezes, Respiratory Distress, Stridor - Cardiovascular Exam Cardiovascular Exam: REGULAR RHYTHM, +S1, +S2. absent: Gallop, Rubs, Murmur - GI/Abdominal Exam GI & Abdominal Exam: Soft, Normal Bowel Sounds. absent: Distended, Firm, Guarding, Rigid, Tenderness, Hyperactive Bowel Sounds - Extremities Exam Extremities Exam: Normal Capillary Refill, Normal Inspection. absent: Pedal Edema, Tenderness - Back Exam Back Exam: rash noted - Neurological Exam Neurological Exam: Awake, Oriented x3 Neuro motor strength exam: Left Upper Extremity: 4, Right Upper Extremity: 4, Left Lower Extremity: 4, Right Lower Extremity: 4 - Psychiatric Exam Psychiatric exam: Flat Affect - Skin Skin Exam: Dry, Rash (dry, some with crusts, and scabs all over the body, exept the abdominal region. ), Warm Assessment and Plan - Assessment and Plan (Free Text) Assessment: 1) ALEJANDRA on CKD- improving 2) Anemia of chronic disease 3) Reactive HIV test with CD4 count of 52 4) Leukopenia ANC of 2128- improved with steroid. 5) Lower back pain-likely 2nd to degenerative changes 6) Mechanical fall 2nd to gait instability 7) htn 8) OA 9) Small renal calculi 10) Generalized rash in the setting of ALEJANDRA and eosinophilia, r/o MM, AIN, HIV. 11) Indeterminate right renal lesion 12) Complex right renal cyst vs solid. 13) Glaucoma with right eye blindness. 14) Right ear otitis media Plan: Creatinine continued to improve. Will continue prednisone for one more day. Pending UPEP and spep. Reactive HIV test with absolute CD4 count of 52, pending viral load and HIV PCR. Will continue Lipitor for hld. Norvasc for htn, and Lopressor. On cosopt for glaucoma. Benadryl prn for pruritus. On protonix for gi prophylaxis and heparin sc for DVT prophylaxis. Patient seen, examined, and case discussed with Dr Boogie. <Nathan Boogie - Last Filed: 01/04/17 19:36> Objective - Vital Signs/Intake and Output Vital Signs (last 24 hours): Temp Pulse Resp BP Pulse Ox 98.8 F 76 20 118/56 L 100 01/04/17 16:00 01/04/17 16:00 01/04/17 16:00 01/04/17 16:00 01/04/17 16:00 Intake and Output: 01/04/17 01/05/17 18:59 06:59 Intake Total 720 Output Total 400 Balance 320 - Medications Medications: Current Medications Amlodipine Besylate (Norvasc) 5 mg PO DAILY [facility] Last Admin: 01/04/17 11:18 Dose: 5 mg Amoxicillin/Clavulanate Potassium (Augmentin 500 Mg-125 Mg Tab) 1 tab PO Q12 [facility] PRN Reason: Protocol Stop: 01/09/17 22:01 Atorvastatin Calcium (Lipitor) 20 mg PO HS [facility] Last Admin: 01/03/17 21:34 Dose: 20 mg Diphenhydramine HCl (Benadryl) 25 mg PO Q6 PRN PRN Reason: Rash Dorzolamide/Timolol (Cosopt 2%-0.5% Opht) 1 drop OD DAILY [facility] Last Admin: 01/04/17 11:20 Dose: 1 drop Heparin Sodium (Porcine) (Heparin) 5,000 units SC Q12 [facility] PRN Reason: Protocol Last Admin: 01/04/17 11:20 Dose: 5,000 units Metoprolol Succinate (Toprol Xl) 100 mg PO DAILY [facility] Last Admin: 01/04/17 11:18 Dose: 100 mg Pantoprazole Sodium (Protonix Ec Tab) 40 mg PO 0600 [facility] Last Admin: 01/04/17 05:56 Dose: 40 mg Prednisone (Prednisone Tab) 40 mg PO DAILY [facility] Stop: 01/05/17 07:00 Last Admin: 01/04/17 11:17 Dose: 40 mg - Labs Labs: 01/04/17 06:30 01/04/17 06:30 Assessment and Plan - Assessment and Plan (Free Text) Plan: Pt seen and examined. Agree with above not of resident. Labs reviewed. Rash looks like it may be improving. Cr is improving. Will DC Prednisone. Willing to go to TCU.
[2017-01-04] MEDS: Amoxicillin-Clav 500-125 mg Tab PO SCH (22:02)
[2017-01-05] MEDS: Pantoprazole 40 mg EC Tab PO SCH (05:59)
[2017-01-05 07:21] LABS: HEMATOCRIT 25.8 % (36.0-48.0); MEAN CELL VOLUME 81.6 fl (80.0-105.0); MEAN CORPUSCULAR HEMOGLOBIN 27.2 pg (25.0-35.0); MEAN CORPUSCULAR HGB CONC 33.3 g/dl (31.0-37.0); RED CELL DISTRIBUTION WIDTH 16.8 % (11.5-14.5); WHITE BLOOD COUNT 3.5 10^3/ul (4.5-11.0)
[2017-01-05 07:44] LABS: ALB/GLOB RATIO 0.9 (1.1-1.8); BILIRUBIN,TOTAL 0.2 mg/dL (0.2-1.3); CALCIUM 9.1 mg/dL (8.4-10.5); POTASSIUM 4.7 mmol/L (3.6-5.0); TOTAL PROTEIN 6.8 g/dL (5.8-8.3)
--- NOTE | 2017-01-05 10:09 | CP.PCM.PN ---
<Carla Fernando - Last Filed: 01/05/17 12:32> Subjective - Date & Time of Evaluation Date of Evaluation: 01/05/17 Time of Evaluation: :25 - Subjective Subjective: Progress note for Dr Chuyita grady. Patient reported the rash and the pruritus is improving. No acute overnight events. Denies n/v/d, denies fever or chills. Denies abdominal pain, chest pain or shortness of breath. Patient is encouraged to get out of bed. Objective - Vital Signs/Intake and Output Vital Signs (last 24 hours): Temp Pulse Resp BP Pulse Ox 98.4 F 76 20 135/71 100 01/05/17 08:33 01/05/17 08:33 01/05/17 08:33 01/05/17 08:33 01/05/17 08:33 Intake and Output: 01/05/17 01/05/17 06:59 18:59 Intake Total 300 120 Output Total 200 Balance 100 120 - Medications Medications: Current Medications Amlodipine Besylate (Norvasc) 5 mg PO DAILY [facility] Last Admin: 01/04/17 11:18 Dose: 5 mg Amoxicillin/Clavulanate Potassium (Augmentin 500 Mg-125 Mg Tab) 1 tab PO Q12 [facility] PRN Reason: Protocol Stop: 01/09/17 22:01 Last Admin: 01/04/17 22:02 Dose: 1 tab Atorvastatin Calcium (Lipitor) 20 mg PO HS [facility] Last Admin: 01/04/17 22:02 Dose: 20 mg Diphenhydramine HCl (Benadryl) 25 mg PO Q6 PRN PRN Reason: Rash Last Admin: 01/04/17 22:24 Dose: 25 mg Dorzolamide/Timolol (Cosopt 2%-0.5% Opht) 1 drop OD DAILY [facility] Last Admin: 01/04/17 11:20 Dose: 1 drop Heparin Sodium (Porcine) (Heparin) 5,000 units SC Q12 [facility] PRN Reason: Protocol Last Admin: 01/04/17 22:00 Dose: 5,000 units Metoprolol Succinate (Toprol Xl) 100 mg PO DAILY [facility] Last Admin: 01/04/17 11:18 Dose: 100 mg Pantoprazole Sodium (Protonix Ec Tab) 40 mg PO 0600 [facility] Last Admin: 01/05/17 05:59 Dose: 40 mg - Labs Labs: 08/25/17 06:30 01/05/17 06:30 - Constitutional Appears: No Acute Distress, Cachectic, Chronically Ill - Head Exam Head Exam: ATRAUMATIC, NORMAL INSPECTION, NORMOCEPHALIC - Eye Exam Eye Exam: EOMI, PERRL Additional comments: right eye blindness, left eye with glaucoma. - ENT Exam ENT Exam: Mucous Membranes Moist - Neck Exam Neck Exam: Full ROM, Normal Inspection - Respiratory Exam Respiratory Exam: Clear to Ausculation Bilateral, NORMAL BREATHING PATTERN. absent: Prolonged Expiratory Phase, Rales, Rhonchi, Wheezes, Respiratory Distress, Stridor - Cardiovascular Exam Cardiovascular Exam: REGULAR RHYTHM, RRR, +S1, +S2. absent: Bradycardia, Tachycardia, Gallop, JVD, Rubs, Murmur - GI/Abdominal Exam GI & Abdominal Exam: Soft, Normal Bowel Sounds. absent: Distended, Firm, Guarding, Rigid, Tenderness, Rebound - Extremities Exam Extremities Exam: Normal Inspection. absent: Pedal Edema - Back Exam Back Exam: NORMAL INSPECTION - Neurological Exam Neurological Exam: Alert, Awake, Oriented x3 - Psychiatric Exam Psychiatric exam: Normal Affect, Normal Mood - Skin Skin Exam: Dry, Rash (egenralized body parker, sparing the abdmen, with crusted edge, no draiange.), Warm Assessment and Plan - Assessment and Plan (Free Text) Assessment: 1) ALEJANDRA on CKD presumably AIN with pre-renal component, creat improving. 2) Anemia of chronic disease 3) Reactive HIV test with CD4 count of 52 4) Leukopenia ANC of 2128 5) Lower back pain-likely 2nd to degenerative changes 6) Mechanical fall 2nd to gait instability 7) htn 8) OA 9) Small renal calculi 10) Generalized rash- infectious versus allergic 11) Indeterminate right renal lesion 12) Complex right renal cyst vs solid. 13) Glaucoma with right eye blindness. 14) Right ear otitis media Plan: Creatinine continue to improve. Prednisone was discontinued. Generalized rash with some improvement, Confirmatory HIV test still pending, however CD4 count of 52 is alarming for AIDS. Patient is on Augmentin for otitis media of the right ear. Positive FOBT, Gi consulted. H/H remains somewhat stable. Will continue Lipitor for hld. Norvasc for htn, and Lopressor. On cosopt for glaucoma. Benadryl prn for pruritus. On protonix for gi prophylaxis and heparin sc for DVT prophylaxis. Patient seen, examined, and case discussed with Dr Boogie. <Nathan Boogie S - Last Filed: 01/05/17 21:00> Objective - Vital Signs/Intake and Output Vital Signs (last 24 hours): Temp Pulse Resp BP Pulse Ox 98 F 70 18 125/57 L 99 01/05/17 16:00 01/05/17 16:00 01/05/17 16:00 01/05/17 16:00 01/05/17 16:00 Intake and Output: 01/05/17 01/06/17 18:59 06:59 Intake Total 120 Balance 120 - Labs Labs: 01/05/17 06:30 01/05/17 06:30 Assessment and Plan - Assessment and Plan (Free Text) Plan: Pt seen and examined. Resident note reviewed and I agree with it. HIV PCR pending. Eating ok.
[2017-01-05] MEDS: Amoxicillin-Clav 500-125 mg Tab PO SCH (10:12)
[2017-01-05] MEDS: Metoprolol Succinate 100 mg XL Tab PO SCH (10:13)
[2017-01-05] MEDS: Dorzolamide 2%/Timolol 0.5% 100 DROP/10 ML BOTTLE OD SCH (11:58)
[2017-01-05 16:49] VITALS: BP 125/57; PULSE 70; RESP 18; TEMP 98; O2SAT 99
--- NOTE | 2017-01-06 02:37 | PN ---
DATE: 01/05/2017 SUBJECTIVE: The patient is seen in bed, in no acute distress, nontoxic, was seen earlier this morning at room #376, bed 1. No fevers and no chills. PHYSICAL EXAMINATION: VITAL SIGNS: Temperature is 98, blood pressure is 120/50, respiratory rate of 18 and heart rate of 76. HEENT: Unremarkable. NECK: Supple. HEART: Normal S1 and S2. LUNGS: Decreased breath sounds. ABDOMEN: Soft and nontender. LABORATORY DATA: Revealed the patient's white count is 3.5 and hemoglobin of 8. Chemistries reveals a BUN of 48 and creatinine of 1.7. Laboratory reveals of CD4 count of 5% with 52 with positive HIV reactive and PCR 498 logs.. Microbiology is noted. 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 We will discuss with Dr. Rene. The patient should have a CMP workup and ophthalmology examination. The patient does have hypertension and renal disease. We will discuss with Dr Rene regarding a post history with the patient's medical problems and we will follow closely with you. Albino Tapia MD
--- NOTE | 2017-01-08 02:14 | CON ---
DATE: 01/04/2017 This patient was seen and evaluated on 01/04/2017 in med/surgery floor. This is a delayed re-dictation. The original dictation was not found in the system. HISTORY OF PRESENT ILLNESS: This is a 71-year-old patient with HIV positive diagnosed about 7 years ago, followed by Dr. Arguelles, noncompliant with medications, who presented to the emergency room with a history of fall. The patient was complaining of back and abdominal discomfort. She was also found to be anemic with a hemoglobin of 8.9. Stool for occult blood was positive. GI consult was requested to evaluate this. No history of bright red blood per rectum or melena, no history of any vomiting. The patient mentioned to me that she had an endoscopy and possibly colonoscopy, she does not remember the full details, about 3 to 4 years ago. History of gastritis. The patient was also found to have acute kidney injury on top of chronic kidney disease. The patient's hemoglobin on admission was 8 g and it remains stable. MCV normal at 81. PAST MEDICAL HISTORY: Other past medical history is significant as above and the patient has a right eye blindness, GERD, hypertension, and HIV positive as mentioned above. PAST SURGICAL HISTORY: Significant for surgery for glaucoma. FAMILY HISTORY: Noncontributory. SOCIAL HISTORY: Denies smoking or alcohol. ALLERGIES: NO KNOWN DRUG ALLERGIES. REVIEW OF SYSTEMS: Positive as above. Other systems reviewed. No chest pain, no palpitations, and no cough. No bleeding per rectum, no melena. No hematuria. PHYSICAL EXAMINATION GENERAL: On examination, the patient has right eye reduced acuity blindness. On examination, the patient is lying on the bed, not in acute distress. VITAL SIGNS: Temperature 98.8, pulse 76, and blood pressure 118/56. HEENT: Atraumatic. Right eye blindness. NECK: Supple. HEART: S1 and S2 heard. LUNGS: Bilateral air entry present. ABDOMEN: Soft. There was no tenderness. EXTREMITIES: No cyanosis and no clubbing. NEUROLOGICAL: Alert and oriented. LABORATORY DATA: Hemoglobin 8.5, hematocrit 25.7, WBC 4.7, and platelets 190. Chemistry is essentially unremarkable, BUN 53 and creatinine 1.9. The patient did have a CAT scan of the abdomen and pelvis done with no IV or p.o. contrast, a limited study, shows right renal calculus, indeterminate right renal lesion. IMPRESSION: This is a 71-year-old patient with human immunodeficiency virus positive, noncompliant with treatment, admitted following a fall with abdominal pain and back pain, found to be anemic, normocytic. Iron studies are suggestive of chronic kidney disease. Stool for occult blood positive. Hemoglobin remains stable. The likely cause for her anemia is probably multifactorial etiology. The patient does have chronic kidney disease, history of human immunodeficiency virus positive, normocytic anemia. PLAN: Would recommend: 1. B12 and folate were normal. Iron studies reviewed. Would recommend reticulocyte count. 2. Follow up of the hemoglobin/hematocrit. 3. The patient would benefit from endoscopy and colonoscopy evaluation. The patient is being treated for acute kidney injury on the top of chronic kidney disease. The timing of the procedure will be based on the clinical course of the patient. I did discuss with the patient at the present time. I will also discuss with the family. Thank you very much for allowing us to participate in the care of the patient. Nathan Qureshi MD
[2017-01-08 06:10] LABS: BETA 1 GLOBULIN 0.2 g/dL (0.4-0.6); BETA 2 GLOBULIN 0.3 g/dL (0.2-0.5); GAMMA GLOBULIN 1.5 g/dL (0.8-1.7)
--- NOTE | 2017-02-01 00:51 | DS ---
This is a 71-year-old female who had come into the hospital, was found to have acute kidney injury. She was thought to have acute interstitial nephritis, was placed on prednisone and IV fluids. The patient had HIV testing done that was positive. Apparently, the patient has a history of HIV and had stopped treatment many years ago. She is going to follow up with ID. The patient had a rash that had some improvement, but will get better once the patient is on HIV medications. The patient was discharged to TCU and from there she is going to be discharged home. Please see the note dictated on 01/05/2017 for details. Nathan Boogie MD
== END 2017-01-05 19:31 ==
LOC: ED 23:17 → ERH 01-02 05:40 → INTOOBSV 01-02 05:40 → ERH 01-02 06:20 → 2RSO 01-02 10:39 → 3RSO 01-03 20:37
PROVIDERS: ADMIT Internal Medicine Nephrology; ATTEND Internal Medicine Nephrology
DX: N17.9 Acute kidney failure, unspecified (principal); B20 Human immunodeficiency virus [HIV] disease; L29.8 Other pruritus; I12.9 Hypertensive chronic kidney disease with stage 1 through stage 4 chronic kidney disease, or unspecified chronic kidney disease; N18.9 Chronic kidney disease, unspecified; D63.8 Anemia in other chronic diseases classified elsewhere; D72.1 Eosinophilia; K21.9 Gastro-esophageal reflux disease without esophagitis; H40.9 Unspecified glaucoma; H54.11 Blindness, right eye, low vision left eye; R26.89 Other abnormalities of gait and mobility; H66.91 Otitis media, unspecified, right ear; N20.0 Calculus of kidney; K29.50 Unspecified chronic gastritis without bleeding; Z91.14 Patient's other noncompliance with medication regimen; Z91.81 History of falling
CPT/HCPCS: 36415; 71010; 72110; 73502; 74176; 80053; 81001; 82550; 82607; 82728; 82746; 83540; 83550; 83615; 84155; 84156; 84165; 84300; 84484; 85025; 85027; 86335; 86360; 86703; 86850; 86900; 87086; 87205; 87536; 93005; 96374; 97116; 97162; 97530; 99285; G0328; G0378; G8978; G8979; J1200; J1644; J7040

== ENCOUNTER 2017-01-05 19:31 | Inpatient (IN) | payer MEDICARE, OTHER ==
[2017-01-05] MEDS: Amoxicillin-Clav 500-125 mg Tab PO SCH (22:26)
[2017-01-06 02:43] VITALS: BMI 22.8
[2017-01-06] MEDS: Pantoprazole 40 mg EC Tab PO SCH (05:22)
[2017-01-06 07:35] LABS: BASO # 0.01 K/mm3 (0.0-2.0); BASO % 0.2 % (0.0-3.0); EOS # 0.5 (0.0-0.7); EOS % 11.2 % (1.5-5.0); GRAN # 2.41 (1.4-6.5); GRAN % 56.5 % (50.0-68.0); HEMATOCRIT 27.4 % (36.0-48.0); LYMPH % 23.2 % (22.0-35.0); MEAN CELL VOLUME 82.3 fl (80.0-105.0); MEAN CORPUSCULAR HGB CONC 32.8 g/dl (31.0-37.0); MEAN PLATELET VOLUME 9.4 fl (7.0-11.0); MONO # 0.4 (0.1-0.6); MONO % 8.9 % (1.0-6.0); WHITE BLOOD COUNT 4.3 10^3/ul (4.5-11.0)
[2017-01-06 08:13] LABS: ALB/GLOB RATIO 0.9 (1.1-1.8); BILIRUBIN,TOTAL 0.3 mg/dL (0.2-1.3); CALCIUM 8.9 mg/dL (8.4-10.5); POTASSIUM 4.6 mmol/L (3.6-5.0); TOTAL PROTEIN 6.9 g/dL (5.8-8.3)
[2017-01-06] MEDS: Amoxicillin-Clav 500-125 mg Tab PO SCH ×2 (10:55→21:12)
[2017-01-06] MEDS: Dorzolamide 2%/Timolol 0.5% 100 DROP/10 ML BOTTLE OD SCH (10:55)
[2017-01-06] MEDS: Metoprolol Succinate 100 mg XL Tab PO SCH (10:55)
--- NOTE | 2017-01-07 05:47 | CON ---
DATE: 01/06/2017 SUBJECTIVE: The patient is seen early this morning in room 313. CHIEF COMPLAINT: Weakness times several months. HISTORY OF PRESENT ILLNESS: This is a 71-year-old female with GERD, right eye blindness, cataracts, and hypertension, gastritis, anemia who also has arthritis, high cholesterol and who is admitted to the acute care now admitted to transitional care for further treatment. REVIEW OF SYSTEM: Reveals the patient states that she is an HIV flare patient, which has gotten progressively worse. She has no headaches. She has no fevers now. She has the itching and the skin rash that is present now for several weeks and actually perhaps months. PAST MEDICAL HISTORY: Significant for GERD, right eye blindness, hypertension, gastritis, anemia, high cholesterol and arthritis. PAST SURGICAL HISTORY: Significant for cataract surgery. ALLERGIES: THE PATIENT HAS NO KNOWN ALLERGIES. MEDICATIONS AT HOME: Noted to include; Vasotec, Lasix, vitamins, Lipitor, Norvasc. PHYSICAL EXAMINATION: VITAL SIGNS: Patient seen in bed with a temperature of 98, blood pressure 117/60, respiratory rate of 18, heart rate of 98. HEENT: Unremarkable. She does have eye examination as noted. NECK: Supple. LUNGS: Decreased breath sounds. HEART: Normal S1 and S2. ABDOMEN: Soft. SKIN: Reveals the patient has papular skin eruption on her face, scalp, neck and upper chest, which is pruritic. LABORATORY DATA: Noted and reviewed with white count of 4.3, hemoglobin of 9 with the platelets of 195. Chemistry reveals the patient has a BUN of 41, creatinine of 1.5. 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 Patient states that she was told she has human immunodeficiency virus by Dr. Arguelles seven years ago, was started on human immunodeficiency virus medications, but she did not continue with the human immunodeficiency virus medication, discontinued it some time ago. It appears all her symptoms are secondary to human immunodeficiency virus and acquired immune deficiency syndrome. 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 Will make further recommendation should start human immunodeficiency virus medications once the patient is discharged, we will follow her in the office and we will check on CRP, FTA, RPR, CMV PCR, and make further recommendations. Albino Tapia MD
[2017-01-07] MEDS: Pantoprazole 40 mg EC Tab PO SCH (06:18)
[2017-01-07] MEDS: Amoxicillin-Clav 500-125 mg Tab PO SCH ×2 (10:46→22:10)
[2017-01-07] MEDS: Dorzolamide 2%/Timolol 0.5% 100 DROP/10 ML BOTTLE OD SCH (10:47)
[2017-01-07] MEDS: Metoprolol Succinate 100 mg XL Tab PO SCH (10:48)
--- NOTE | 2017-01-07 13:46 | PN ---
DATE: 01/07/2017 SUBJECTIVE: The patient is seen earlier today. PHYSICAL EXAMINATION: VITAL SIGNS: Temperature 99, blood pressure 130/80, respiratory rate 20, and heart rate 98. HEENT: Unremarkable. NECK: Supple. LUNGS: Decreased breath sounds. HEART: Normal S1 and S2. ABDOMEN: Soft. LABORATORY DATA: Reveals a white count of 4.3, hemoglobin of 9, and platelets of 195. BUN is 41, creatinine of 1.5. Serology, RPR is negative. Rash is unchanged. ASSESSMENT AND PLAN: This is a 71-year-old female with systemic inflammatory response syndrome, leukopenia, tachycardia with endstage acquired immune deficiency syndrome with eosinophilic folliculitis with a low T-cells and we will check on the CMV, PCR, FTA, and Cryptococcus antigen. Rule out CMV retinitis. Waiting ophthalmology. The patient states that she was told she had HIV [address] Arguelles. She was given HIV medications, which she took for a short period of time and has discontinued it. We will follow closely with you. Albino Tapia MD
--- NOTE | 2017-01-08 01:16 | CP.PCM.PN ---
Subjective - Date & Time of Evaluation Date of Evaluation: 01/08/17 Time of Evaluation: 01:14 - Subjective Subjective: Patient was seen at bedside. Complains of itching all over body. Has no other complaints. Received benadryl as ordered. Has been on benadryl Q6H. According to her benadryl is helping her for a little while only. Requests something else. [facility] record was reviewed. This 71 year old woman was admitted after a mechanical fall with mid abdominal and back pain. Has PMH of HTN,HLD, SIRS, renal insufficiency ,GERD,arthritis, right eye blindness, cataract, left eye glaucoma. Objective - Vital Signs/Intake and Output Vital Signs (last 24 hours): Temp Pulse Resp BP Pulse Ox 98.5 F 73 18 124/59 L 99 01/08/17 01:08 01/08/17 01:08 01/08/17 01:08 01/08/17 01:08 01/07/17 10:00 - Medications Medications: Current Medications Amlodipine Besylate (Norvasc) 5 mg PO DAILY [facility] PRN Reason: Protocol Last Admin: 01/07/17 10:47 Dose: 5 mg Amoxicillin/Clavulanate Potassium (Augmentin 500 Mg-125 Mg Tab) 1 tab PO Q12 [facility] PRN Reason: Protocol Stop: 01/09/17 22:01 Last Admin: 01/07/17 22:10 Dose: 1 tab Atorvastatin Calcium (Lipitor) 20 mg PO HS [facility] PRN Reason: Protocol Last Admin: 01/07/17 22:10 Dose: 20 mg Diphenhydramine HCl (Benadryl) 25 mg PO Q6 PRN; Protocol PRN Reason: Rash Last Admin: 01/07/17 22:16 Dose: 25 mg Dorzolamide/Timolol (Cosopt 2%-0.5% Opht) 1 drop OD DAILY [facility] PRN Reason: Protocol Last Admin: 01/07/17 10:47 Dose: 1 drop Heparin Sodium (Porcine) (Heparin) 5,000 units SC Q12 [facility] PRN Reason: Protocol Last Admin: 01/07/17 22:10 Dose: 5,000 units Metoprolol Succinate (Toprol Xl) 100 mg PO DAILY [facility] PRN Reason: Protocol Last Admin: 01/07/17 10:48 Dose: 100 mg Pantoprazole Sodium (Protonix Ec Tab) 40 mg PO 0600 [facility] PRN Reason: Protocol Last Admin: 01/07/17 06:18 Dose: 40 mg - Labs Labs: 01/06/17 07:30 01/06/17 06:56 Last Vital Signs Temp 98.5 F 01/08/17 01:08 Pulse 73 01/08/17 01:08 Resp 18 01/08/17 01:08 BP 124/59 L 01/08/17 01:08 Pulse Ox 99 01/07/17 10:00 Most Recent Lab Values WBC 4.3 10^3/ul (4.5-11.0) L D 01/06/17 07:30 RBC 3.33 10^6/uL (3.5-6.1) L 01/06/17 07:30 Hgb 9.0 g/dL (12.0-16.0) L 01/06/17 07:30 Hct 27.4 % (36.0-48.0) L 01/06/17 07:30 MCV 82.3 fl (80.0-105.0) 01/06/17 07:30 MCH 27.0 pg (25.0-35.0) 01/06/17 07:30 MCHC 32.8 g/dl (31.0-37.0) 01/06/17 07:30 RDW 17.0 % (11.5-14.5) H 01/06/17 07:30 Plt Count 195 10^3/uL (120.0-450.0) 01/06/17 07:30 MPV 9.4 fl (7.0-11.0) 01/06/17 07:30 Gran % 56.5 % (50.0-68.0) 01/06/17 07:30 Lymph % (Auto) 23.2 % (22.0-35.0) 01/06/17 07:30 Bailey % (Auto) 8.9 % (1.0-6.0) H 01/06/17 07:30 Eos % (Auto) 11.2 % (1.5-5.0) H 01/06/17 07:30 Baso % (Auto) 0.2 % (0.0-3.0) 01/06/17 07:30 Gran # 2.41 (1.4-6.5) 01/06/17 07:30 Lymph # 1.0 (1.2-3.4) L 01/06/17 07:30 Bailey # 0.4 (0.1-0.6) 01/06/17 07:30 Eos # 0.5 (0.0-0.7) 01/06/17 07:30 Baso # 0.01 K/mm3 (0.0-2.0) 01/06/17 07:30 Sodium 139 mmol/L (132-148) 01/06/17 06:56 Potassium 4.6 mmol/L (3.6-5.0) 01/06/17 06:56 Chloride 104 mmol/L (98-107) 01/06/17 06:56 Carbon Dioxide 26 mmol/L (21-33) 01/06/17 06:56 Anion Gap 14 (10-20) 01/06/17 06:56 BUN 41 mg/dL (7-21) H 01/06/17 06:56 Creatinine 1.5 mg/dL (0.5-1.4) H 01/06/17 06:56 Est GFR ( Amer) 41 01/06/17 06:56 Est GFR (Non-Af Amer) 34 01/06/17 06:56 Random Glucose 81 mg/dL (70-110) 01/06/17 06:56 Calcium 8.9 mg/dL (8.4-10.5) 01/06/17 06:56 Total Bilirubin 0.3 mg/dL (0.2-1.3) 01/06/17 06:56 AST 35 U/L (15-39) 01/06/17 06:56 ALT 41 U/L (7-56) 01/06/17 06:56 Alkaline Phosphatase 71 U/L (38-133) 01/06/17 06:56 Total Protein 6.9 g/dL (5.8-8.3) 01/06/17 06:56 Albumin 3.3 g/dL (3.0-4.8) 01/06/17 06:56 Globulin 3.6 gm/dL 01/06/17 06:56 Albumin/Globulin Ratio 0.9 (1.1-1.8) L 01/06/17 06:56 RPR Nonreactive (NONREACTIVE) 01/06/17 12:50 - Constitutional Appears: Well, No Acute Distress - Head Exam Head Exam: ATRAUMATIC, NORMAL INSPECTION, NORMOCEPHALIC - Eye Exam Additional comments: Right eye blindness. - ENT Exam ENT Exam: Normal External Ear Exam - Neck Exam Neck Exam: Normal Inspection - Cardiovascular Exam Cardiovascular Exam: absent: JVD - GI/Abdominal Exam GI & Abdominal Exam: absent: Distended - Rectal Exam Rectal Exam: Deferred - Exam Additional comments: Deferred. - Extremities Exam Extremities Exam: Normal Inspection - Back Exam Back Exam: NORMAL INSPECTION - Neurological Exam Neurological Exam: Alert, Awake - Psychiatric Exam Psychiatric exam: Normal Affect, Normal Mood - Skin Skin Exam: Rash (Generalized ,scattered, macular , rash present.) Assessment and Plan - Assessment and Plan (Free Text) Assessment: Generalized rash. Back pain. Abdominal pain. HTN. HLD. Renal insufficiency. GERD. Arthritis. Right eye blindness. Glaucoma-left eye. Plan: Vistraril 25 mg PO stat. Continue present management.
[2017-01-08] MEDS: Pantoprazole 40 mg EC Tab PO SCH (05:17)
[2017-01-08] MEDS: Dorzolamide 2%/Timolol 0.5% 100 DROP/10 ML BOTTLE OD SCH (09:55)
[2017-01-08] MEDS: Amoxicillin-Clav 500-125 mg Tab PO SCH ×2 (09:55→21:33)
[2017-01-08] MEDS: Metoprolol Succinate 100 mg XL Tab PO SCH (09:56)
--- NOTE | 2017-01-08 13:47 | CP.PCM.PN ---
<Christiane Maldonado - Last Filed: 01/08/17 13:46> Subjective - Date & Time of Evaluation Date of Evaluation: 01/08/17 Time of Evaluation: 09:45 - Subjective Subjective: Seen and examined at the bedside earlier today. No acute overnight events reported. Patient denies nausea, vomiting, overt GI bleed. No abdominal pain. Tolerating oral intake. Objective - Vital Signs/Intake and Output Vital Signs (last 24 hours): Temp Pulse Resp BP Pulse Ox 98.3 F 97 H 20 121/60 98 01/08/17 10:07 01/08/17 10:07 01/08/17 10:07 01/08/17 10:07 01/08/17 10:07 - Medications Medications: Current Medications Amlodipine Besylate (Norvasc) 5 mg PO DAILY [facility] PRN Reason: Protocol Last Admin: 01/08/17 09:55 Dose: 5 mg Amoxicillin/Clavulanate Potassium (Augmentin 500 Mg-125 Mg Tab) 1 tab PO Q12 [facility] PRN Reason: Protocol Stop: 01/09/17 22:01 Last Admin: 01/08/17 09:55 Dose: 1 tab Atorvastatin Calcium (Lipitor) 20 mg PO HS [facility] PRN Reason: Protocol Last Admin: 01/07/17 22:10 Dose: 20 mg Diphenhydramine HCl (Benadryl) 25 mg PO Q6 PRN; Protocol PRN Reason: Rash Last Admin: 01/07/17 22:16 Dose: 25 mg Dorzolamide/Timolol (Cosopt 2%-0.5% Opht) 1 drop OD DAILY [facility] PRN Reason: Protocol Last Admin: 01/08/17 09:55 Dose: 1 drop Heparin Sodium (Porcine) (Heparin) 5,000 units SC Q12 [facility] PRN Reason: Protocol Last Admin: 01/08/17 10:07 Dose: 5,000 units Metoprolol Succinate (Toprol Xl) 100 mg PO DAILY [facility] PRN Reason: Protocol Last Admin: 01/08/17 09:56 Dose: 100 mg Pantoprazole Sodium (Protonix Ec Tab) 40 mg PO 0600 [facility] PRN Reason: Protocol Last Admin: 01/08/17 05:17 Dose: 40 mg - Labs Labs: 01/06/17 07:30 01/06/17 06:56 - Constitutional Appears: No Acute Distress - Head Exam Head Exam: NORMOCEPHALIC - Eye Exam Eye Exam: Normal appearance. absent: Scleral icterus - ENT Exam ENT Exam: Mucous Membranes Moist - Neck Exam Neck Exam: Normal Inspection - Respiratory Exam Respiratory Exam: NORMAL BREATHING PATTERN. absent: Respiratory Distress - Cardiovascular Exam Cardiovascular Exam: +S1, +S2 - GI/Abdominal Exam GI & Abdominal Exam: Soft, Normal Bowel Sounds. absent: Guarding, Tenderness, Rebound - Extremities Exam Extremities Exam: Normal Capillary Refill. absent: Calf Tenderness - Neurological Exam Neurological Exam: Alert, Awake, Oriented x3 - Skin Skin Exam: Dry, Warm Assessment and Plan - Assessment and Plan (Free Text) Assessment: Assessment: Status post fall with abdominal pain and back pain Guaiac-positive Anemia, could be multifactorial, patient has history of chronic kidney disease SIRRS History HIV positive Plan: Monitor H&H Continue GI prophylaxis, on Protonix 40 daily on Heparin SQ on oral antibiotics Patient would benefit from endoscopy and colonoscopy evaluation, discussed with patient about elective outpatient workup, she agree to come as an outpatient. Seen and discussed w/ Dr. Qureshi. <Nathan Qureshi V - Last Filed: 02/12/17 15:58> Objective - Vital Signs/Intake and Output Vital Signs (last 24 hours): Temp Pulse Resp BP Pulse Ox 98.5 F 76 18 114/57 L 91 L 01/08/17 16:42 01/08/17 16:42 01/08/17 16:42 01/08/17 16:42 01/08/17 16:42 - Medications Medications: Current Medications Amlodipine Besylate (Norvasc) 5 mg PO DAILY [facility] PRN Reason: Protocol Last Admin: 01/08/17 09:55 Dose: 5 mg Amoxicillin/Clavulanate Potassium (Augmentin 500 Mg-125 Mg Tab) 1 tab PO Q12 [facility] PRN Reason: Protocol Stop: 01/09/17 22:01 Last Admin: 01/08/17 21:33 Dose: 1 tab Atorvastatin Calcium (Lipitor) 20 mg PO HS [facility] PRN Reason: Protocol Last Admin: 01/08/17 21:33 Dose: 20 mg Diphenhydramine HCl (Benadryl) 25 mg PO Q6 PRN; Protocol PRN Reason: Rash Last Admin: 01/07/17 22:16 Dose: 25 mg Dorzolamide/Timolol (Cosopt 2%-0.5% Opht) 1 drop OD DAILY [facility] PRN Reason: Protocol Last Admin: 01/08/17 09:55 Dose: 1 drop Heparin Sodium (Porcine) (Heparin) 5,000 units SC Q12 [facility] PRN Reason: Protocol Last Admin: 01/08/17 21:33 Dose: 5,000 units Metoprolol Succinate (Toprol Xl) 100 mg PO DAILY [facility] PRN Reason: Protocol Last Admin: 01/08/17 09:56 Dose: 100 mg Pantoprazole Sodium (Protonix Ec Tab) 40 mg PO 0600 [facility] PRN Reason: Protocol Last Admin: 01/08/17 05:17 Dose: 40 mg - Labs Labs: 01/06/17 07:30 01/06/17 06:56 - GI/Abdominal Exam GI & Abdominal Exam: Soft, Normal Bowel Sounds. absent: Tenderness Assessment and Plan - Assessment and Plan (Free Text) Assessment: this is an addendum to the GI progress note of GERALDINE Del Castillo. The patient was seen, examined and the chart was reviewed earlier today. Patient on exam abdomen was soft and nontender. We will continue GI prophylaxis and monitor H& H. The patient is on heparin subcutaneous. the patient is noted to have anemia which could be multifactorial, the patient has history of chronic kidney disease. H&H has remained steady and no signs of overt GI bleed. Patient would benefit from endoscopy and colonoscopy evaluation which can be done electively as an outpatient, discussed with the patient. Attending/Attestation - Attestation I have personally seen and examined this patient.: Yes I have fully participated in the care of the patient.: Yes I have reviewed all pertinent clinical information, including history, physical exam and plan: Yes Notes (Text): 01/08/17 23:02 p
--- NOTE | 2017-01-08 23:06 | PN ---
DATE: 01/08/2017 The patient is seen earlier today. She states she has less itching. No fevers on exam. PHYSICAL EXAMINATION: VITAL SIGNS: Temperature is 98.4, blood pressure is 114/60, respiratory rate 16. HEENT: Unremarkable. NECK: Supple. LUNGS: Decreased breath sounds. HEART: Normal S1 and S2. ABDOMEN: Soft and nontender. LABORATORY DATA: White count is 4.3, hemoglobin of 9 and platelets of 195. Chemistry reveals a BUN of 41, creatinine of 1.5. Serology is noted. Cryptococcal antigen is negative. RPR is negative. FTA is negative. The CMV PCR is pending. 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 Human immunodeficiency virus medications were started, but she only took it for short period of time. We will follow closely with you. We will make further recommendations. We will also order a human immunodeficiency virus genotype so we can follow her as outpatient with appropriate antibiotic therapy. Albino Tapia MD
--- NOTE | 2017-01-09 03:00 | PN ---
DATE: 01/08/2017 SUBJECTIVE: The patient has no complaints of any chest pain or shortness of breath. No headache or dizziness. Initial H&P was reviewed and I do agree with. PHYSICAL EXAMINATION VITAL SIGNS: Temperature 98.5, pulse 76, blood pressure 114/57 and respirations 18. GENERAL: The patient is lying in bed, flat, comfortable. HEENT: No oral lesion. Anicteric sclerae. Moist mucosa. NECK: No JVD, adenopathy, or thyromegaly. CARDIOVASCULAR: S1 and S2, regular. No murmurs, rubs, or gallops. LUNGS: Clear to auscultation bilaterally. No wheeze, rales, or rhonchi. ABDOMEN: Bowel sounds are positive, soft, nontender and nondistended. EXTREMITIES: No cyanosis, clubbing or edema. LABS: White count 4.3 and hemoglobin 9.0. Creatinine is 1.5. ASSESSMENT: 1. Human immunodeficiency virus positive. 2. Rash, improving. 3. Acute kidney injury, improved. 4. Anemia of chronic disease. 5. Chronic back pain secondary to osteoarthritis. 6. Hypertension. 7. Nephrolithiasis. 8. Right renal cyst. 9. Glaucoma with right eye blindness. PLAN: The patient is currently comfortable. She does have a history of HIV, that she was diagnosed about 7 years ago, she was give HIV medications and then stopped. She is being followed by ID. The patient is on Augmentin and is going to continue with heparin for DVT prophylaxis, patient is on metoprolol. She is on heart healthy diet. Nathan Boogie MD
[2017-01-09] MEDS: Pantoprazole 40 mg EC Tab PO SCH (05:22)
[2017-01-09] MEDS: Amoxicillin-Clav 500-125 mg Tab PO SCH ×2 (10:48→22:43)
[2017-01-09] MEDS: Dorzolamide 2%/Timolol 0.5% 100 DROP/10 ML BOTTLE OD SCH (10:49)
[2017-01-09] MEDS: Metoprolol Succinate 100 mg XL Tab PO SCH (10:50)
[2017-01-09] MEDS: POLYETHYLENE GLYCOL 3350 17 GM/Dose PACKET PO SCH (17:49)
--- NOTE | 2017-01-09 21:47 | PN ---
DATE: 01/09/2017 SUBJECTIVE: The patient is in bed, in no acute distress, nontoxic. PHYSICAL EXAMINATION: VITAL SIGNS: Temperature is 98, blood pressure is 103/50, respiratory rate of 17 and a heart rate of 84. HEENT: Unremarkable. NECK: Supple. LUNGS: Decreased breath sounds. HEART: Normal S1 and S2. ABDOMEN: Soft. LABORATORY DATA: Reveals a count of 4.3, hemoglobin of 9. BUN of 41 and creatinine of 1.5. Serology is noted. Cryptococcus antigen is negative. RPR is nonreactive. FDH is nonreactive. Patient's T cells are 5%, T4 of 54. Review of orders reveals the CMV PCR is still pending and HIV genotype is pending. Patient is on p.o. Augmentin. Dr. Daniels's note is reviewed. 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 She agrees to come for followup. Albino Tapia MD
[2017-01-10] MEDS: Pantoprazole 40 mg EC Tab PO SCH (05:47)
[2017-01-10] MEDS ORDERED: Atovaquone 750 mg/5 ml Susp UD PO SCH ×2 (08:00→10:00)
[2017-01-10] MEDS: Metoprolol Succinate 100 mg XL Tab PO SCH (08:44)
[2017-01-10] MEDS: Dorzolamide 2%/Timolol 0.5% 100 DROP/10 ML BOTTLE OD SCH (10:29)
[2017-01-10] MEDS: Atovaquone 750 mg/5 ml Susp UD PO SCH ×2 (10:29→17:50)
[2017-01-10] MEDS: POLYETHYLENE GLYCOL 3350 17 GM/Dose PACKET PO SCH ×2 (10:30→17:50)
--- NOTE | 2017-01-10 14:45 | CP.PCM.PN ---
Subjective - Date & Time of Evaluation Date of Evaluation: 01/10/17 Time of Evaluation: 10:00 - Subjective Subjective: Seen and examined at the bedside earlier today., Chart reviewed. No acute overnight events reported. Patient reports bowel movement, no reports of melena or bright red blood per rectum. Denies nausea, vomiting, or abdominal pain. Objective - Vital Signs/Intake and Output Vital Signs (last 24 hours): Temp Pulse Resp BP Pulse Ox 98.5 F 89 18 138/69 97 01/10/17 10:38 01/10/17 10:38 01/10/17 10:38 01/10/17 10:38 01/10/17 10:38 - Medications Medications: Current Medications Amlodipine Besylate (Norvasc) 5 mg PO DAILY KALPANA PRN Reason: Protocol Last Admin: 01/10/17 10:31 Dose: 5 mg Atorvastatin Calcium (Lipitor) 20 mg PO HS KAL[facility]NA PRN Reason: Protocol Last Admin: 01/09/17 22:43 Dose: 20 mg Atovaquone (Mepron) 750 mg PO BID KALPANA Last Admin: 01/10/17 10:29 Dose: 750 mg Diphenhydramine HCl (Benadryl) 25 mg PO Q6 PRN; Protocol PRN Reason: Rash Last Admin: 01/10/17 05:49 Dose: 25 mg Dorzolamide/Timolol (Cosopt 2%-0.5% Opht) 1 drop OD DAILY K[facility]NA PRN Reason: Protocol Last Admin: 01/10/17 10:29 Dose: 1 drop Heparin Sodium (Porcine) (Heparin) 5,000 units SC 0600,1800 KALPANA PRN Reason: Protocol Last Admin: 01/10/17 05:46 Dose: 5,000 units Metoprolol Succinate (Toprol Xl) 100 mg PO 0800 KALPANA PRN Reason: Protocol Last Admin: 01/10/17 08:44 Dose: 100 mg Pantoprazole Sodium (Protonix Ec Tab) 40 mg PO 0600 K[facility]NA PRN Reason: Protocol Last Admin: 01/10/17 05:47 Dose: 40 mg Polyethylene Glycol (Miralax) 17 gm PO BID KALPANA PRN Reason: Protocol Last Admin: 01/10/17 10:30 Dose: 17 gm - Labs Labs: 01/06/17 07:30 01/06/17 06:56 - Constitutional Appears: No Acute Distress - Eye Exam Eye Exam: Normal appearance. absent: Scleral icterus - ENT Exam ENT Exam: Mucous Membranes Moist - Neck Exam Neck Exam: Normal Inspection - Respiratory Exam Respiratory Exam: NORMAL BREATHING PATTERN. absent: Respiratory Distress - Cardiovascular Exam Cardiovascular Exam: +S1, +S2 - GI/Abdominal Exam GI & Abdominal Exam: Soft, Normal Bowel Sounds. absent: Guarding, Tenderness, Rebound - Extremities Exam Extremities Exam: absent: Calf Tenderness, Pedal Edema - Neurological Exam Neurological Exam: Alert, Awake, Oriented x3 - Skin Skin Exam: Dry, Warm Assessment and Plan - Assessment and Plan (Free Text) Assessment: Assessment: Status post fall with abdominal pain and back pain Guaiac-positive Anemia, could be multifactorial, patient has history of chronic kidney disease SIRRS History HIV positive Plan: Monitor H&H Continue GI prophylaxis, on Protonix 40 daily on Heparin SQ off oral antibiotics Patient would benefit from endoscopy and colonoscopy evaluation, discussed with patient about elective outpatient workup. Discussed w/ Dr. Grajead covering Dr. Qureshi.
--- NOTE | 2017-01-10 15:34 | CP.PCM.PN ---
Subjective - Date & Time of Evaluation Date of Evaluation: 01/10/17 Time of Evaluation: 11:15 - Subjective Subjective: Comfortable in bed, not in distress, still with pruritus, no fevers overnight. Objective - Vital Signs/Intake and Output Vital Signs (last 24 hours): Temp Pulse Resp BP Pulse Ox 98.2 F 81 18 111/60 99 01/09/17 16:55 01/10/17 08:44 01/09/17 16:55 01/10/17 08:44 01/09/17 16:55 - Medications Medications: Current Medications Amlodipine Besylate (Norvasc) 5 mg PO DAILY KALPANA PRN Reason: Protocol Last Admin: 01/09/17 10:50 Dose: 5 mg Atorvastatin Calcium (Lipitor) 20 mg PO HS KAL[facility]NA PRN Reason: Protocol Last Admin: 01/09/17 22:43 Dose: 20 mg Diphenhydramine HCl (Benadryl) 25 mg PO Q6 PRN; Protocol PRN Reason: Rash Last Admin: 01/10/17 05:49 Dose: 25 mg Dorzolamide/Timolol (Cosopt 2%-0.5% Opht) 1 drop OD DAILY K[facility]NA PRN Reason: Protocol Last Admin: 01/09/17 10:49 Dose: 1 drop Heparin Sodium (Porcine) (Heparin) 5,000 units SC 0600,1800 KALPANA PRN Reason: Protocol Last Admin: 01/10/17 05:46 Dose: 5,000 units Metoprolol Succinate (Toprol Xl) 100 mg PO 0800 KAL[facility]NA PRN Reason: Protocol Last Admin: 01/10/17 08:44 Dose: 100 mg Pantoprazole Sodium (Protonix Ec Tab) 40 mg PO 0600 [facility]NA PRN Reason: Protocol Last Admin: 01/10/17 05:47 Dose: 40 mg Polyethylene Glycol (Miralax) 17 gm PO BID K[facility]NA PRN Reason: Protocol Last Admin: 01/09/17 17:49 Dose: 17 gm - Labs Labs: 01/06/17 07:30 01/06/17 06:56 - Constitutional Appears: Non-toxic, No Acute Distress - Head Exam Head Exam: NORMAL INSPECTION - ENT Exam ENT Exam: Mucous Membranes Moist - Neck Exam Neck Exam: absent: Meningismus - Respiratory Exam Respiratory Exam: Decreased Breath Sounds - Cardiovascular Exam Cardiovascular Exam: +S1, +S2 - GI/Abdominal Exam GI & Abdominal Exam: Soft. 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
--- NOTE | 2017-01-10 23:18 | CP.PCM.PN ---
Subjective - Date & Time of Evaluation Date of Evaluation: 01/10/17 Time of Evaluation: 23:17 - Subjective Subjective: Patient was seen at bedside. She complained of itching all over body. Received benadryl 3 hours ago, not due yet. Has no other complaints. Denies allergies to any meds. Medical record was reviewed. 71 year old woman was admitted after a mechanical fall with back mid abdominal and pain. PMH of HTN,HLD, SIRS, GERD, renal insufficiency ,arthritis, right eye blindness , cataract, left eye glaucoma. Objective - Vital Signs/Intake and Output Vital Signs (last 24 hours): Temp Pulse Resp BP Pulse Ox 98.6 F 84 18 107/58 L 99 01/10/17 16:56 01/10/17 16:56 01/10/17 16:56 01/10/17 16:56 01/10/17 16:56 - Medications Medications: Current Medications Amlodipine Besylate (Norvasc) 5 mg PO DAILY KALPANA PRN Reason: Protocol Last Admin: 01/10/17 10:31 Dose: 5 mg Atorvastatin Calcium (Lipitor) 20 mg PO HS [facility]NA PRN Reason: Protocol Last Admin: 01/09/17 22:43 Dose: 20 mg Atovaquone (Mepron) 750 mg PO 0800,1800 [facility]NA Diphenhydramine HCl (Benadryl) 25 mg PO Q6 PRN; Protocol PRN Reason: Rash Last Admin: 01/10/17 20:48 Dose: 25 mg Dorzolamide/Timolol (Cosopt 2%-0.5% Opht) 1 drop OD DAILY [facility]NA PRN Reason: Protocol Last Admin: 01/10/17 10:29 Dose: 1 drop Heparin Sodium (Porcine) (Heparin) 5,000 units SC 0600,1800 KAL[facility]NA PRN Reason: Protocol Last Admin: 01/10/17 17:50 Dose: 5,000 units Metoprolol Succinate (Toprol Xl) 100 mg PO 0800 K[facility]NA PRN Reason: Protocol Last Admin: 01/10/17 08:44 Dose: 100 mg Pantoprazole Sodium (Protonix Ec Tab) 40 mg PO 0600 [facility]NA PRN Reason: Protocol Last Admin: 01/10/17 05:47 Dose: 40 mg Polyethylene Glycol (Miralax) 17 gm PO BID K[facility]NA PRN Reason: Protocol Last Admin: 01/10/17 17:50 Dose: Not Given - Labs Labs: 01/06/17 07:30 01/06/17 06:56 - Constitutional Appears: Well, No Acute Distress - Head Exam Head Exam: ATRAUMATIC, NORMAL INSPECTION, NORMOCEPHALIC - Eye Exam Eye Exam: Normal appearance - ENT Exam ENT Exam: Normal External Ear Exam - Respiratory Exam Respiratory Exam: NORMAL BREATHING PATTERN - Cardiovascular Exam Cardiovascular Exam: absent: JVD - GI/Abdominal Exam GI & Abdominal Exam: absent: Distended - Rectal Exam Rectal Exam: Deferred - Exam Additional comments: Deferred. - Extremities Exam Extremities Exam: Normal Inspection - Back Exam Back Exam: NORMAL INSPECTION - Neurological Exam Neurological Exam: Alert, Oriented x3 - Psychiatric Exam Psychiatric exam: Normal Affect, Normal Mood - Skin Skin Exam: Dry. absent: Rash Assessment and Plan - Assessment and Plan (Free Text) Assessment: Generalized pruritis. HTN. HLD. SIRS. GERD. Renal insufficiency. Arthritis. Left eye glaucoma. Plan: Vistaril 25 mg PO stat. Continue present management.
--- NOTE | 2017-01-11 03:31 | DS ---
SUBJECTIVE: The patient has no complaints of any chest pain, no shortness of breath, no headache. She has been getting physical therapy and doing well. She is aware of her HIV status and she was informed about the importance of followup, to start her medications. She states she does understand. She had been had an HIV that has not been treated for many years. PHYSICAL EXAMINATION: VITAL SIGNS: Temperature is 98.6, pulse of 84, blood pressure is 107/68, and respirations 18. GENERAL: The patient is lying in bed, flat, comfortable. HEENT: No oral lesion. Anicteric sclerae. Moist mucosa. NECK: No JVD, adenopathy, or thyromegaly. CARDIOVASCULAR: S1 and S2, regular. No murmurs, rubs, or gallops. LUNGS: Clear to auscultation bilaterally. No wheeze, rales, or rhonchi. ABDOMEN: Bowel sounds are positive, soft, nontender and nondistended. EXTREMITIES: No cyanosis, clubbing or edema. LABORATORY DATA: Creatinine is 1.5. ASSESSMENT: 1. Human immunodeficiency virus. 2. Rash, improving. 3. Kidney injury, improved. 4. Anemia of chronic disease. 5. Chronic back pain secondary to osteoarthritis. 6. Hypertension. 7. Nephrolithiasis. 8. Right renal cyst. 9. Glaucoma with right eye blindness. 10. Chronic kidney disease stage III. PLAN: The patient is currently comfortable. She is on her eyedrops. She is going to be treated with Lipitor for dyslipidemia. She is on heparin for DVT prophylaxis. The patient is on metoprolol. The rash is most likely due to her HIV. She will most likely be able to go home tomorrow. Condition is stable. Activities increase as tolerated. Nathan Boogie MD
[2017-01-11] MEDS: Pantoprazole 40 mg EC Tab PO SCH (05:32)
[2017-01-11] MEDS: Atovaquone 750 mg/5 ml Susp UD PO SCH ×2 (08:23→17:39)
[2017-01-11] MEDS: Metoprolol Succinate 100 mg XL Tab PO SCH (08:23)
[2017-01-11] MEDS: POLYETHYLENE GLYCOL 3350 17 GM/Dose PACKET PO SCH ×2 (10:10→17:39)
[2017-01-11] MEDS: Dorzolamide 2%/Timolol 0.5% 100 DROP/10 ML BOTTLE OD SCH (10:10)
[2017-01-11 11:48] VITALS: RESP 20
--- NOTE | 2017-01-11 13:44 | CP.PCM.PN ---
Subjective - Date & Time of Evaluation Date of Evaluation: 01/11/17 Time of Evaluation: 10:50 - Subjective Subjective: Comfortable in bed, not in distress, afebrile, still with itching but a little better. Objective - Vital Signs/Intake and Output Vital Signs (last 24 hours): Temp Pulse Resp BP Pulse Ox 98.6 F 71 18 107/56 L 99 01/10/17 16:56 01/11/17 08:23 01/10/17 16:56 01/11/17 08:23 01/10/17 16:56 - Medications Medications: Current Medications Amlodipine Besylate (Norvasc) 5 mg PO DAILY KALPANA PRN Reason: Protocol Last Admin: 01/10/17 10:31 Dose: 5 mg Atorvastatin Calcium (Lipitor) 20 mg PO HS [facility]NA PRN Reason: Protocol Last Admin: 01/10/17 23:28 Dose: 20 mg Atovaquone (Mepron) 750 mg PO 0800,1800 KALPANA Last Admin: 01/11/17 08:23 Dose: 750 mg Diphenhydramine HCl (Benadryl) 25 mg PO Q6 PRN; Protocol PRN Reason: Rash Last Admin: 01/11/17 05:34 Dose: 25 mg Dorzolamide/Timolol (Cosopt 2%-0.5% Opht) 1 drop OD DAILY [facility] PRN Reason: Protocol Last Admin: 01/10/17 10:29 Dose: 1 drop Heparin Sodium (Porcine) (Heparin) 5,000 units SC 0600,1800 K[facility]NA PRN Reason: Protocol Last Admin: 01/11/17 05:33 Dose: 5,000 units Metoprolol Succinate (Toprol Xl) 100 mg PO 0800 K[facility]NA PRN Reason: Protocol Last Admin: 01/11/17 08:23 Dose: 100 mg Pantoprazole Sodium (Protonix Ec Tab) 40 mg PO 0600 [facility]NA PRN Reason: Protocol Last Admin: 01/11/17 05:32 Dose: 40 mg Polyethylene Glycol (Miralax) 17 gm PO BID [facility]NA PRN Reason: Protocol Last Admin: 01/10/17 17:50 Dose: Not Given - Labs Labs: 01/06/17 07:30 01/06/17 06:56 - Constitutional Appears: Non-toxic - Head Exam Head Exam: NORMAL INSPECTION - ENT Exam ENT Exam: Mucous Membranes Moist - Respiratory Exam Respiratory Exam: Decreased Breath Sounds - Cardiovascular Exam Cardiovascular Exam: +S1, +S2 - GI/Abdominal Exam GI & Abdominal Exam: Soft. 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
[2017-01-12] MEDS: Pantoprazole 40 mg EC Tab PO SCH (05:25)
[2017-01-12] MEDS: Atovaquone 750 mg/5 ml Susp UD PO SCH (08:32)
[2017-01-12] MEDS: Metoprolol Succinate 100 mg XL Tab PO SCH (08:49)
--- NOTE | 2017-01-12 10:22 | CP.PCM.PN ---
Subjective - Date & Time of Evaluation Date of Evaluation: 01/12/17 Time of Evaluation: 08:50 - Subjective Subjective: Seen and examined at the bedside in CCU this morning, no reports of acute overnight events. The patient denies nausea, vomiting, nausea or abdominal pain. She is moving her bowels, last BM was yesterday, she reports that it felt hard. No reports of bleeding per rectum. The patient is on MiraLAX twice a day. Objective - Vital Signs/Intake and Output Vital Signs (last 24 hours): Temp Pulse Resp BP Pulse Ox 98.6 F 73 20 113/56 L 91 L 01/11/17 16:28 01/12/17 08:49 01/11/17 16:28 01/12/17 08:49 01/11/17 16:28 Intake and Output: 01/12/17 01/12/17 06:59 18:59 Intake Total 600 Balance 600 - Medications Medications: Current Medications Amlodipine Besylate (Norvasc) 5 mg PO DAILY [place]NA PRN Reason: Protocol Last Admin: 01/11/17 10:10 Dose: 5 mg Atorvastatin Calcium (Lipitor) 20 mg PO HS K[facility]NA PRN Reason: Protocol Last Admin: 01/11/17 21:32 Dose: 20 mg Atovaquone (Mepron) 750 mg PO 0800,1800 KALPANA Last Admin: 01/12/17 08:32 Dose: 750 mg Diphenhydramine HCl (Benadryl) 25 mg PO Q6 PRN; Protocol PRN Reason: Rash Last Admin: 01/11/17 21:33 Dose: 25 mg Dorzolamide/Timolol (Cosopt 2%-0.5% Opht) 1 drop OD DAILY K[facility]NA PRN Reason: Protocol Last Admin: 01/11/17 10:10 Dose: 1 drop Heparin Sodium (Porcine) (Heparin) 5,000 units SC 0600,1800 KAL[facility]NA PRN Reason: Protocol Last Admin: 01/12/17 05:26 Dose: 5,000 units Metoprolol Succinate (Toprol Xl) 100 mg PO 0800 KAL[facility]NA PRN Reason: Protocol Last Admin: 01/12/17 08:49 Dose: 100 mg Pantoprazole Sodium (Protonix Ec Tab) 40 mg PO 0600 KAL[facility]NA PRN Reason: Protocol Last Admin: 01/12/17 05:25 Dose: 40 mg Polyethylene Glycol (Miralax) 17 gm PO BID KAL[facility]NA PRN Reason: Protocol Last Admin: 01/11/17 17:39 Dose: 17 gm - Labs Labs: 01/06/17 07:30 01/06/17 06:56 - Constitutional Appears: No Acute Distress - Head Exam Head Exam: NORMOCEPHALIC - Eye Exam Eye Exam: Normal appearance. absent: Scleral icterus - ENT Exam ENT Exam: Mucous Membranes Moist - Neck Exam Neck Exam: Normal Inspection - Respiratory Exam Respiratory Exam: NORMAL BREATHING PATTERN. absent: Respiratory Distress - Cardiovascular Exam Cardiovascular Exam: +S1, +S2 - GI/Abdominal Exam GI & Abdominal Exam: Soft, Normal Bowel Sounds. absent: Guarding, Tenderness, Rebound - Extremities Exam Extremities Exam: absent: Calf Tenderness, Pedal Edema - Neurological Exam Neurological Exam: Alert, Awake, Oriented x3 - Skin Skin Exam: Dry, Warm Assessment and Plan - Assessment and Plan (Free Text) Assessment: Assessment: Status post fall with abdominal pain and back pain Guaiac-positive Anemia, could be multifactorial, patient has history of chronic kidney disease SIRRS History HIV positive Plan: Monitor H&H Continue GI prophylaxis, on Protonix 40 daily on Heparin SQ off oral antibiotics continue MiraLAX twice a day, will add stool softeners,Discontinue for loose stools. Patient would benefit from endoscopy and colonoscopy evaluation, discussed with patient about elective outpatient workup. Discussed w/ Dr. Grajeda covering Dr. Qureshi
[2017-01-12 10:31] VITALS: BP 138/75; PULSE 89; TEMP 97.1; O2SAT 97
[2017-01-12] MEDS: POLYETHYLENE GLYCOL 3350 17 GM/Dose PACKET PO SCH (11:09)
--- NOTE | 2017-01-12 11:09 | PN ---
DATE: 01/12/2017 SUBJECTIVE: The patient is in bed, in no acute distress, nontoxic. PHYSICAL EXAMINATION: VITAL SIGNS: Temperature is 98, blood pressure 130/80, and respiratory rate 20. HEENT: Unremarkable. NECK: Supple. LUNGS: Decreased breath sounds. HEART: Normal S1 and S2. ABDOMEN: Soft and nontender. LABORATORY DATA: Reveals a white count of 4.3, hemoglobin of 9, and platelets of 195. Chemistries are noted. Cryptococcal antigen is negative. FIELD SERVICES ANALYST and PCR is negative. 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 Currently, on Mepron for PCP prophylaxis and the patient to be started on HIV medication upon discharge and will follow with you. Albino Tapia MD
--- NOTE | 2017-01-15 20:48 | DS ---
DISCHARGE DIAGNOSES: Human immunodeficiency virus, rash, chronic kidney disease stage III, anemia of chronic disease, chronic back pain, hypertension, nephrolithiasis, right renal cyst, glaucoma, right eye blindness. HOSPITAL COURSE: The patient was started on HAART during the hospitalization and PCP prophylaxis, Mepron. She has eosinophilic dermatitis of HIV, hypertension, renal failure. Condition improved during hospitalization. PHYSICAL EXAMINATION ON DISCHARGE: GENERAL: Comfortable in bed, in no acute distress. HEENT: Normal. VITAL SIGNS: Temperature 98.7, blood pressure 130/70, respiratory rate 18 per minute. NECK: No lymphadenopathy. CHEST: Air entry present and equal bilaterally. No added sounds. CARDIOVASCULAR: Within normal limits. ABDOMEN: Soft and nontender. No hepatosplenomegaly. EXTREMITIES: No edema. LABORATORY DATA: White count 4.3, hemoglobin 9, hematocrit 27.4, platelets 195. Sodium 139, potassium 4.6, BUN 41, creatinine 1.4, AST 35, ALT 41. CONDITION ON DISCHARGE: Stable. DISCHARGE DISPOSITION: Home. HOME MEDICATIONS: Norvasc 5 mg daily, Lipitor 20 mg daily, Mepron 750 p.o. b.i.d., Benadryl p.r.n., metoprolol 100 mg daily, Vistaril 25 mg daily, MiraLax 17 g p.r.n. PLAN: Follow up with Dr. Tapia. Follow up with Dr. Daniels in 1 week. All prescriptions given. Discussed with staff nurse, discussed with the patient. Time spent in preparing discharge and coordinating 55 minutes. Maritza Marshall MD
[2017-01-26 14:27] LABS: HIV-1 GENOTYPE DETECTED
== END 2017-01-12 15:51 | disposition home or self-care (01) | DRG 977 ==
LOC: TRCU 19:31
PROVIDERS: ADMIT Internal Medicine Nephrology; ATTEND Internal Medicine Nephrology
PROC: F07Z9FZ Gait Training/Functional Ambulation Treatment using Assistive, Adaptive, Supportive or Protective Equipment (ICD-10-PCS; principal; 2017-01-06)
PROC: F07M6ZZ Therapeutic Exercise Treatment of Musculoskeletal System - Whole Body (ICD-10-PCS; 2017-01-06)
PROC: F08Z4ZZ Home Management Treatment (ICD-10-PCS; 2017-01-08)
DX: B20 Human immunodeficiency virus [HIV] disease (principal); N17.9 Acute kidney failure, unspecified; R65.10 Systemic inflammatory response syndrome (SIRS) of non-infectious origin without acute organ dysfunction; D72.1 Eosinophilia; D63.8 Anemia in other chronic diseases classified elsewhere; N28.1 Cyst of kidney, acquired; N18.3 Chronic kidney disease, stage 3 (moderate); G89.29 Other chronic pain; N20.0 Calculus of kidney; M54.9 Dorsalgia, unspecified; M47.9 Spondylosis, unspecified; H40.9 Unspecified glaucoma; H54.41 Blindness, right eye, normal vision left eye; I12.9 Hypertensive chronic kidney disease with stage 1 through stage 4 chronic kidney disease, or unspecified chronic kidney disease; E78.00 Pure hypercholesterolemia, unspecified; E78.5 Hyperlipidemia, unspecified; H26.9 Unspecified cataract; K21.9 Gastro-esophageal reflux disease without esophagitis; K29.50 Unspecified chronic gastritis without bleeding; L30.9 Dermatitis, unspecified; L73.9 Follicular disorder, unspecified; W18.30XA Fall on same level, unspecified, initial encounter; Z79.899 Other long term (current) drug therapy

== ENCOUNTER 2017-05-24 20:11 | Emergency (ER) | payer MEDICARE ==
[2017-05-24 20:12] VITALS: BMI 26.4
[2017-05-24 20:55] VITALS: BP 132/70; PULSE 86; RESP 18; TEMP 98.9; O2SAT 100
--- NOTE | 2017-05-24 21:25 | ED PDOC ---
Arrival/HPI - General Chief Complaint: Medical Clearance Time Seen by Provider: 05/24/17 21:05 - History of Present Illness Narrative History of Present Illness (Text): 71 y/o F c PMHx HIV, CKD, bilateral lower extremity DVT on Eliquis p/w lower leg swelling, worse in the last day with associated pain. Denies trauma, injury , recent surgery, travel, erythema. Denies chest pain, dyspnea. PMD [place] Past Medical History - Infectious Disease Hx of Infectious Diseases: None - Cardiac Hx Cardiac Disorders: Yes Hx Hypertension: Yes - Pulmonary Hx Respiratory Disorders: No - Neurological Hx Neurological Disorder: No - HEENT Hx HEENT Disorder: Yes Hx Blind: Yes (r eye blind, left eye impaired vision) Hx Glaucoma: Yes (b/l sx) - Renal Hx Renal Disorder: No - Endocrine/Metabolic Hx Endocrine Disorders: No - Hematological/Oncological Hx Blood Disorders: Yes Hx Anemia: Yes (chronic) Hx Blood Transfusions: No - Integumentary Hx Dermatological Disorder: Yes Other/Comment: body rash brown bumps over entire body c/o itchy, generalized dry skin started few days ago - Musculoskeletal/Rheumatological Hx Musculoskeletal Disorders: Yes Hx Arthritis: Yes (right hip and leg) Hx Falls: Yes (2 days ago) - Gastrointestinal Hx Gastrointestinal Disorders: Yes (weight loss as per pt) - Genitourinary/Gynecological Hx Genitourinary Disorders: No - Psychiatric Hx Psychophysiologic Disorder: No Hx Emotional Abuse: No Hx Physical Abuse: No Hx Substance Use: No - Anesthesia Hx Anesthesia: Yes Hx Anesthesia Reactions: Yes (DIFFICULTY WAKING UP AFTER EYE SX) Hx Malignant Hyperthermia: No - Suicidal Assessment Feels Threatened In Home Enviroment: No Family/Social History Family/Social History: No Known Family HX Smoking Status: Never Smoked Hx Alcohol Use: No Hx Substance Use: No Allergies/Home Meds Allergies/Adverse Reactions: Allergies No Known Allergies Allergy (Verified 05/24/17 20:49) Home Medications: Home Meds Medication Instructions Recorded Confirmed Apixaban [Eliquis] 5 mg PO BID 05/24/17 05/24/17 Atorvastatin [Lipitor] 20 mg PO HS 05/24/17 05/24/17 Atovaquone 750 mg PO DAILY 05/24/17 05/24/17 Brimonidine 0.2% [Alphagan 0.2% 1 drop OD BID 05/24/17 05/24/17 Opht] Darunavir/Cobicistat [Prezcobix 1 tab PO DAILY 05/24/17 05/24/17 150 mg-800 mg] Docusate Sodium [Marie' Stool 100 mg PO DAILY 05/24/17 05/24/17 Softener Laxative] Dorzolamide HCl/Timolol Maleat 10 ml OP BID 05/24/17 05/24/17 [Dorzolamide Hydrochloride/Timolol Maleate 22] Emtricitabine/Tenofov Alafenam 1 each PO DAILY 05/24/17 05/24/17 [Descovy 200-25 mg Tablet] Ergocalciferol (Vitamin D2) 50,000 unit PO QWK 05/24/17 05/24/17 [Vitamin D2] Metoprolol Succinate [Toprol XL] 100 mg PO DAILY 05/24/17 05/24/17 Mirtazapine [Remeron] 15 mg PO HS 05/24/17 05/24/17 Pantoprazole [Protonix] 40 mg PO DAILY 05/24/17 05/24/17 Phenylephrine HCl/Witch Racheal 1 gel TP DAILY 05/24/17 05/24/17 [Hemorrhoidal Cooling Gel 0.25%-50%] Sulfamethoxazole/Trimethoprim 1 tab PO DAILY 05/24/17 05/24/17 [Bactrim DS 800 mg-160 mg] Review of Systems - Physician Review All systems were reviewed & negative as marked: Yes - Review of Systems Constitutional: absent: Fevers Respiratory: absent: SOB Cardiovascular: absent: Chest Pain Physical Exam - Physical Exam Narrative Physical Exam (Text): Constitutional: No acute distress. Head: Normocephalic. Atraumatic. Eyes: PERRL. ENT: Moist mucous membranes. Neck: Supple. Cardiovascular: Regular rate. Chest: No tenderness. Respiratory: Clear to auscultation bilaterally. GI: Soft. Nontender. Nondistended. Back: No CVA tenderness. Musculoskeletal: +swelling of lower extremities. Skin: No rash. Neurologic: Alert, no focal deficit. Vital Signs Temp Pulse Resp BP Pulse Ox 05/24/17 20:54 98.9 F 86 18 132/70 100 Medical Decision Making ED Course and Treatment: Will obtain doppler to evaluate for propogation of DVT. Kidney function stable, CXR no pulmonary edema. Family at bedside states will be able to have f/u with Dr. Forrest for comparison for doppler findings. US shows no DVT of other extremity. ProBNP mildly elevated, patient without chest pain, dyspnea, or crackles. Advised f/u with Dr. Forrest for further evaluation and management, perhaps early onset CHF. - Lab Interpretations Lab Results: 05/24/17 21:50 05/24/17 21:50 Lab Results 05/24/17 21:50: PT 15.2 H, INR 1.33 H, APTT 33.2 05/24/17 21:50: Sodium 139, Potassium 4.7, Chloride 104, Carbon Dioxide 28, Anion Gap 12, BUN 26 H, Creatinine 1.9 H, Est GFR ( Amer) 31, Est GFR ( Non-Af Amer) 26, Random Glucose 104, Calcium 9.0, Total Bilirubin 0.4, AST 31, ALT 21, Alkaline Phosphatase 79, NT-Pro-B Natriuret Pep 3780 H, Total Protein 7.8, Albumin 3.5, Globulin 4.3, Albumin/Globulin Ratio 0.8 L 05/24/17 21:50: WBC 4.1 L, RBC 2.94 L, Hgb 8.7 L, Hct 27.5 L, MCV 93.5 D, MCH 29.6, MCHC 31.6, RDW 15.2 H, Plt Count 225, MPV 8.9, Gran % 53.2, Lymph % (Auto ) 40.0 H, Kay % (Auto) 5.9, Eos % (Auto) 0.7 L, Baso % (Auto) 0.2, Gran # 2.15 , Lymph # 1.6, Kay # 0.2, Eos # 0.0, Baso # 0.01 - RAD Interpretation Radiology Orders: 05/24/17 21:14 DUPLEX LOWER EXTRM VEIN BILAT [US] Stat Disposition/Present on Arrival - Present on Arrival Any Indicators Present on Arrival: No History of DVT/PE: No History of Uncontrolled Diabetes: No Urinary Catheter: No History of Decub. Ulcer: No History Surgical Site Infection Following: None - Disposition Have Diagnosis and Disposition been Completed?: Yes Diagnosis: Leg swelling Disposition: HOME/ ROUTINE Disposition Time: 00:05 Patient Plan: Discharge Condition: STABLE Discharge Instructions (ExitCare): Leg Edema (ED) Referrals: Bev Forrest MD [Medical Doctor] - Follow up with primary Forms: [facility] ([place])
[2017-05-24 22:00] LABS: BASO # 0.01 K/mm3 (0.0-2.0); BASO % 0.2 % (0.0-3.0); EOS % 0.7 % (1.5-5.0); GRAN # 2.15 (1.4-6.5); GRAN % 53.2 % (50.0-68.0); HEMOGLOBIN 8.7 g/dL (12.0-16.0); LYMPH # 1.6 (1.2-3.4); MEAN CELL VOLUME 93.5 fl (80.0-105.0); MEAN CORPUSCULAR HEMOGLOBIN 29.6 pg (25.0-35.0); MEAN CORPUSCULAR HGB CONC 31.6 g/dl (31.0-37.0); MEAN PLATELET VOLUME 8.9 fl (7.0-11.0); MONO # 0.2 (0.1-0.6); MONO % 5.9 % (1.0-6.0); RBC 2.94 10^6/uL (3.5-6.1); RED CELL DISTRIBUTION WIDTH 15.2 % (11.5-14.5); WHITE BLOOD COUNT 4.1 10^3/ul (4.5-11.0)
[2017-05-24 22:12] LABS: ALB/GLOB RATIO 0.8 (1.1-1.8); ALBUMIN 3.5 g/dL (3.0-4.8)
[2017-05-24 22:16] LABS: INR 1.33 (0.93-1.08); PARTIAL THROMBOPLASTIN TIME 33.2 Seconds (25.1-36.5); PROTHROMBIN TIME 15.2 SECONDS (9.4-12.5)
--- NOTE | 2017-05-24 23:54 | US ---
HISTORY: Leg pain and swelling. Evaluate for DVT PHYSICIAN(S): Shun Williamson MD. TECHNIQUE: Duplex sonography and color-flow Doppler with graded compression were used to evaluate the deep venous systems of both lower extremities. FINDINGS: The visualized deep venous systems of both lower extremities are sonographically normal and compressible. Normal wave forms and augmentation are seen. There is no sonographic evidence for deep venous thrombosis in the visualized segments of both lower extremities. IMPRESSION: No sonographic evidence for deep venous thrombosis in the visualized segments of both lower extremities.
== END 2017-05-25 00:20 | disposition home or self-care (01) ==
LOC: ED 20:11
DX: M79.89 Other specified soft tissue disorders (principal); I12.9 Hypertensive chronic kidney disease with stage 1 through stage 4 chronic kidney disease, or unspecified chronic kidney disease; N18.9 Chronic kidney disease, unspecified; Z86.718 Personal history of other venous thrombosis and embolism; Z79.01 Long term (current) use of anticoagulants; Z21 Asymptomatic human immunodeficiency virus [HIV] infection status